=== PATIENT | female | born 1985 | race Caucasian/White ===

== ENCOUNTER → 2021-02-27 13:17 | Outpatient (CLI) | payer OTHER, SELFPAY ==
--- NOTE | 2021-02-27 13:21 | DI.RAD.S_ITS ---
PROCEDURE: XR KNEE LT 3V INDICATIONS: left knee pain TECHNIQUE: 3 views of the knee were acquired. COMPARISON: None. FINDINGS: Bones: No fractures or dislocations. No suspicious bony lesions. There is mild lateral subluxation of the patella at the trochlear groove associated with a relatively shallow trochlear angle. Soft tissues: No joint effusion. No suspicious soft tissue calcifications. IMPRESSION: Mild lateral subluxation of the patella, which may indicate medial ligamentous laxity but there also is note made of a relatively shallow trochlear groove which does predispose to lateral subluxation. Dictated by: Robert Flores M.D. on 02/27/2021 at 14:47 Approved by: Robert Flores M.D. on 02/27/2021 at 14:49
== END ==
PROVIDERS: Family Provider Obstetrics & Gynecology; PCP Family Medicine; Referring Provider Family Medicine; Visit Provider Family Medicine
DX: M25.562 Pain in left knee (principal); S83.012A Lateral subluxation of left patella, initial encounter; X58.XXXA Exposure to other specified factors, initial encounter
CPT/HCPCS: 73562

== ENCOUNTER → 2021-03-16 12:01 | Outpatient (CLI) | payer OTHER, SELFPAY ==
--- NOTE | 2021-03-16 12:03 | DI.US.S_ITS ---
PROCEDURE: US ABDOMEN COMPLETE INDICATIONS: ABDOMINAL PAIN TECHNIQUE: Real-time scanning was performed of the abdominal and retroperitoneal organs, with image documentation. COMPARISON: None. FINDINGS: Liver: Liver is normal in size and homogeneous in echotexture. Gallbladder: Normally distended gallbladder. No gallbladder wall thickening or pericholecystic fluid. No gallstones or sludge. Biliary ducts: Normal caliber. Pancreas: Visualized proximal portions of the pancreas are unremarkable. Spleen: Spleen is normal in size and homogeneous in echotexture. Kidneys: Normal size and appearance of both kidneys. Aorta: Visualized aorta is normal in caliber at less than 3 cm. Iliacs: Proximal common iliac arteries are normal in caliber at less than 2.5 cm. IVC: Intrahepatic inferior vena cava is patent. Miscellaneous: No free abdominal fluid. IMPRESSION: Normal study. Dictated by: Buck Keenan M.D. on 03/16/2021 at 13:46 Approved by: Buck Keenan M.D. on 03/16/2021 at 13:48
== END ==
PROVIDERS: PCP Family Medicine; Referring Provider Family Medicine; Visit Provider Family Medicine
DX: R10.9 Unspecified abdominal pain (principal)
CPT/HCPCS: 76700

== ENCOUNTER 2021-07-09 10:30 | Outpatient (RCR) | payer OTHER, SELFPAY ==
--- NOTE | 2021-03-10 17:42 | PT.OPPOC ---
Physical, Occupational & Speech Therapy At [facility] Current Diagnoses Pain in left knee (03/10/21) Unspecified abnormalities of gait and mobility (03/10/21) Abnormal posture (03/10/21) Weakness (03/10/21) Visit Care Team Role Provider Type Michell Snow MD Attending Provider Physician Primary Care Provider Referring Provider Specialty: [facility] Address: [address] [place] [address], [facility] [place], [address] Email: [email or web address] Plan Of Care PT-OP-T Assessment and Plan Start: 03/09/21 17:45 Freq: Status: Active Protocol: Document 03/10/21 14:26 [facility] (Rec: 03/10/21 15:18 [facility] [id number]) Physical Therapy Assessment Rehab Potential Rehabilitation Potential Good Evaluation Complexity Number of Personal Factors/Comorbidities 1-2 Number of Body Systems Impaired 4 or More Clinical Presentation at Evaluation Evolving Impairments Impairments Activity Tolerance,Balance, Functional Activities, Functional Mobility,Gait,Pain, Posture,ROM,Soft Tissue Mobility,Strength Goals incline Short Term Goal (STG) Pt will be able to go up/down stairs without inc pain. STG Duration 04/10/21 Long-Term Goal (LTG) Pt will be able to go up/down incline without inc knee pain. LTG Duration 05/10/21 balance Vp Of Digital Marketing Goal (LTG) Pt will be able to do SLS B 30 sec w/arms at side w/o lat shift of pelvis or lat lean. LTG Duration 05/10/21 sleep Short Term Goal (STG) Pt will be able to prop her self with sleeping in order to dec pain and sleep through the night without inc pain. STG Duration 04/10/21 activities Short Term Goal (STG) Pt will be able to use elliptical at gym for working out without inc pain. STG Duration 04/10/21 Long-Term Goal (LTG) Pt will be able to run 20 min without inc knee pain. LTG Duration 05/10/21 strength Short Term Goal (STG) pt will be indep w/HEP STG Duration 04/10/21 Long-Term Goal (LTG) Pt will improve LE strength to at least 5/5 and LPM to at least 3/5 in all planes to show imrpoved stability in order to allow for pt to return to typical active lifestyle without inc pain. LTG Duration 05/10/21 LEFS Impairment 54/80 Short Term Goal (STG) Pt will improve score to at least 65/80 to show improved functional ability. STG Duration 04/10/21 Vp Of Digital Marketing Goal (LTG) Pt will improve score to at least 75/80 to show improved functional ability. LTG Duration 05/10/21 Assessment Summary Assessment Pt presents w/L knee pain that started about 5 months ago over the winter with unknown cause, but did have 2 incidences with inc pain ( after hitting knee in car when climbing from back and from doing jump squats w/bad form). Pain initially improved when improved from w/jump squats but inc again even after she finished working out with the certified personal finance counselor. She has also been working from home the past year and has been in a new role since Oct, which requires her to stay at her desk and pt admits to crossing legs when sitting and wonders if that inc pain. She had a Xray which showed mild lat subluxation of patella w/a relatively shallow trochlear groove. She would benefit from skilled PT to work on her gait mechanics, posture, strength, ROM, balance,and stability in order to dec pain . Physical Therapy Plan Frequency and Duration Frequency of Treatment 1-2x/week Duration of Treatment 2 months Plan of Care Start Date 03/10/21 Plan of Care End Date 05/10/21 Therapeutic Interventions Therapeutic Interventions Aquatic Therapy,Balance Training,Gait Training,Home Exercise Program,Joint Mobilizations,Manual Therapy, Neuromuscular Re-education, Patient/Caregiver Education, Self-Care/Home Management,Soft Tissue Mobilization,Taping, Therapeutic Activities, Therapeutic Exercises Modalities Cold Pack/Ice Massage,Electric Stimulation,Hot Packs, Infrared Therapy,Iontophoresis ,Ultrasound Next Visit Focus/Plan Next Note Type Treatment Note Next Visit Plan bike to start, leg press and discuss use of leg press at gym, KT taping for dec lat patellar glide, clamshells, hip abd & hip ext, B LE hip flex isometric, STM to ITB and thigh to improve mobility Plan of Care Dates Plan of Care Start Date 03/10/21 Plan of Care End Date 05/10/21 Electronically Signed by: Michell Nesbitt, PT 03/11/21 0262 Please Sign and Return: I have reviewed this Plan of Care and certify that the skilled therapy services above are required to meet the patient?s needs. Physician Signature Date Printed Name and Credentials Clinical Instructor Signature Printed Name and Credentials
--- NOTE | 2021-03-10 17:42 | PT.OIE ---
Current Diagnoses Pain in left knee (03/10/21) Unspecified abnormalities of gait and mobility (03/10/21) Abnormal posture (03/10/21) Weakness (03/10/21) Past Medical History (Last Updated 02/27/21 @ 13:09 by Michell Snow MD) Abnormal Pap smear of cervix (~2002) Chicken pox (~1989) Genital warts (~2004) Human papilloma virus (~2002) Shoulder dystocia Spontaneous vaginal delivery Past Surgical History (Last Updated 10/01/18 @ 21:43 by Lore Harris) Anesthesia History of elective History of third molar tooth extraction Status post loop electrosurgical excision procedure (LEEP) of cervix (03/11/17) Visit Care Team Role Provider Type Michell Snow MD Attending Provider Physician Primary Care Provider Referring Provider Specialty: [facility] Address: [address] [place] [address], [facility] Email: [email or web address] Physical Therapy Initial Evaluation PT-OP-A Visit Information Start: 03/09/21 17:45 Freq: Status: Active Protocol: Document 03/10/21 14:26 [facility] (Rec: 03/10/21 15:18 [facility] [id number]) Out-Patient Physical Therapy Visit Information Visit Information Visit Type Initial Evaluation Visit Start Time 14:33 Visit Stop Time 15:15 Total Visit Minutes 42 Visit Number 1 Number of SUPERVISOR MAJOR APPLIANCE ASSEMBLY Visits 0 PT-OP-B Current Condition Start: 03/09/21 17:45 Freq: Status: Active Protocol: Document 03/10/21 14:26 [facility] (Rec: 03/10/21 15:18 [facility] [id number]) Current Condition History of Current Condition Onset Date this winter Current Complaints L knee pain History of Current Condition Pt reports remembering climbing out the back of car and slammed knee into car this winter. She was seeing a virtual show dog trainer this winter and was doing jump squats and did bad form and hurt a lot. She improved form then that helped but then stopped and pain was worse and didn't resume. pt resumed going to the gym and it has been killing me. Tried to start light (did treadmill ( fast pace walking and working up running-has built up to 13 min) or elliptical (in the full range setting). It felt good when she was running but not after. Has not been to gym since xray 1.5 weeks ago. Does do stretching and arms also at gym typcially. Works remotely for a [employer] and sits w/1 knee bent and other leg over it and thinks that may be the main cause but pain does inc. She started new role w/company in Oct where seh has to be in office d/t back to back calls. Pt cannot sleep on her side d/t pain. Has been sleeping supine /prone. Prior Treatments and Tests Xray-IMPRESSION: Mild lateral subluxation of the patella, which may indicate medial ligamentous laxity but there also is note made of a relatively shallow trochlear groove which does predispose to lateral subluxation. Treatment Goals Patient/Caregiver Goals Be able to run again (prior to pandemic was training for 1/2 marathon), be able to sleep easily Personal Factors Other Personal Factors That May Effect R side pains, ant hip pain B Therapy/Recovery off/on, piriformis tendinosis R hip 10 years-chronic PT-OP-C Subjective Start: 03/09/21 17:45 Freq: Status: Active Protocol: Document 03/10/21 14:26 [facility] (Rec: 03/10/21 15:18 [facility] [id number]) Patient Questionnaires Lower Extremity Functional Scale LEFS Score 54 OP-PT Pain Assessment Location L knee Pain Location Details ant & post knee Intensity 3 Scale Used worst:6 Description Tightness Description- Other cold, many different feelings Frequency Constant Radiating Location L calf & HS Pain Aggravating Factors Sitting,Stair Climbing,Bending Other Pain Aggravating Factors running, work, sit>stand, kneeling Pain Alleviating Factors Cold Other Pain Alleviating Factors try to prop PT-OP-D Balance Start: 03/09/21 17:45 Freq: Status: Active Protocol: Document 03/10/21 14:26 [facility] (Rec: 03/10/21 15:18 [facility] [id number]) Balance Tests Single Limb Standing Single Limb- Right 29 w/significant UE use and lat shear of hip Single Limb- Left 26 sec w/significant UE use and lat shear of hip PT-OP-F Manual Assessment Start: 03/09/21 17:45 Freq: Status: Active Protocol: Document 03/10/21 14:26 [facility] (Rec: 03/10/21 15:18 [facility] [id number]) Manual Assessments Soft Tissue Assessment Soft Tissue Mobility Assessment tightness HS, ITB, adductors, calf Joint Mobility Assessment Joint Mobility Assessment rearfoot valgus B, IR femurs & tibias B PT-OP-G Mobility & Gait Start: 03/09/21 17:45 Freq: Status: Active Protocol: Document 03/10/21 14:26 [facility] (Rec: 03/10/21 15:18 [facility] [id number]) OP Gait Assessment Comments Gait Comments Toes turned in, lat shear of hips w/WB, dec push off, inc LUE arm swing PT-OP-J Posture/Palpation/Skin Start: 03/09/21 17:45 Freq: Status: Active Protocol: Document 03/10/21 14:26 [facility] (Rec: 03/10/21 15:18 [facility] [id number]) Posture Evaluation [facility] Postural Classification System Lumbar Protective Mechanism Left AP 0 Lumbar Protective Mechanism Right AP 0 Lumbar Protective Mechanism Left PA 0 Lumbar Protective Mechanism Right PA 0 PT-OP-K Range of Motion Start: 03/09/21 17:45 Freq: Status: Active Protocol: Document 03/10/21 14:26 [facility] (Rec: 03/10/21 15:18 [facility] [id number]) Knee Goniometric Range of Motion Knee Right Flexion Active (degrees) 130 Extension Active (degrees) 0 Left Flexion Active (degrees) 119 Extension Active (degrees) 5 Comments pain at end ranges PT-OP-L Special Tests Start: 03/09/21 17:45 Freq: Status: Active Protocol: Document 03/10/21 14:26 [facility] (Rec: 03/10/21 15:18 [facility] [id number]) Special Tests Knee Special Tests Straight Leg Raise Test Results 78 L, 88 R Steve's Test Test Results positve L Abbe Test Results mild tightness in quads L Varus- 25 Degrees Test Results neg Vaughan's Compression Test Results positve L Thessaly Test 5 Degrees Test Results pain Valgus- 25 Degrees Test Results neg Posterior Draw Test Results neg Cochran Chondromalacia Test Results neg -not a lot of pain noted w /knee ext resisted Corrie Test Test Results neg Jie's Test Results neg PT-OP-M Strength Start: 03/09/21 17:45 Freq: Status: Active Protocol: Document 03/10/21 14:26 [facility] (Rec: 03/10/21 15:18 [facility] [id number]) Hip Strength Hip Manual Muscle Testing Right Flexion (L2) 3+ Fair+ Extension (S1) 4 Good Abduction 3+ Fair+ Adduction 4+ Good+ External Rotation 4 Good Internal Rotation 4 Good Left Flexion (L2) 3+ Fair+ Extension (S1) 4 Good Abduction 3+ Fair+ Adduction 3+ Fair+ External Rotation 3 Fair Internal Rotation 4- Good- Comments pain w/rot Knee Strength Knee Manual Muscle Testing Right Flexion (S2) 5 Normal Extension (L3) 5 Normal Left Flexion (S2) 4- Good- Extension (L3) 5 Normal Ankle/Foot Strength Ankle and Foot Manual Muscle Testing Right Dorsiflexion (L4) 5 Normal Plantarflexion (S1) 5 Normal Inversion 5 Normal Eversion (S1) 5 Normal Comments 20 heel raises Left Dorsiflexion (L4) 5 Normal Plantarflexion (S1) 5 Normal Inversion 5 Normal Eversion (S1) 5 Normal PT-OP-Q Treatments Start: 03/09/21 17:45 Freq: Status: Active Protocol: Document 03/10/21 14:26 [facility] (Rec: 03/10/21 15:18 [facility] [id number]) Therapeutic Exercises Supine Exercises HS Supine Exercise Name active stretch Side left Reps/Minutes 2x15 sec PT-OP-T Assessment and Plan Start: 03/09/21 17:45 Freq: Status: Active Protocol: Document 03/10/21 14:26 [facility] (Rec: 03/10/21 15:18 [facility] [id number]) Physical Therapy Assessment Rehab Potential Rehabilitation Potential Good Evaluation Complexity Number of Personal Factors/Comorbidities 1-2 Number of Body Systems Impaired 4 or More Clinical Presentation at Evaluation Evolving Impairments Impairments Activity Tolerance,Balance, Functional Activities, Functional Mobility,Gait,Pain, Posture,ROM,Soft Tissue Mobility,Strength Goals incline Short Term Goal (STG) Pt will be able to go up/down stairs without inc pain. STG Duration 04/10/21 Commission Auditor Goal (LTG) Pt will be able to go up/down incline without inc knee pain. LTG Duration 05/10/21 balance Commission Auditor Goal (LTG) Pt will be able to do SLS B 30 sec w/arms at side w/o lat shift of pelvis or lat lean. LTG Duration 05/10/21 sleep Short Term Goal (STG) Pt will be able to prop her self with sleeping in order to dec pain and sleep through the night without inc pain. STG Duration 04/10/21 activities Short Term Goal (STG) Pt will be able to use elliptical at gym for working out without inc pain. STG Duration 04/10/21 Mcc Goal (LTG) Pt will be able to run 20 min without inc knee pain. LTG Duration 05/10/21 strength Short Term Goal (STG) pt will be indep w/HEP STG Duration 04/10/21 Mcc Goal (LTG) Pt will improve LE strength to at least 5/5 and LPM to at least 3/5 in all planes to show imrpoved stability in order to allow for pt to return to typical active lifestyle without inc pain. LTG Duration 05/10/21 LEFS Impairment 54/80 Short Term Goal (STG) Pt will improve score to at least 65/80 to show improved functional ability. STG Duration 04/10/21 Mcc Goal (LTG) Pt will improve score to at least 75/80 to show improved functional ability. LTG Duration 05/10/21 Assessment Summary Assessment Pt presents w/L knee pain that started about 5 months ago over the winter with unknown cause, but did have 2 incidences with inc pain ( after hitting knee in car when climbing from back and from doing jump squats w/bad form). Pain initially improved when improved from w/jump squats but inc again even after she finished working out with the show dog trainer. She has also been working from home the past year and has been in a new role since Oct, which requires her to stay at her desk and pt admits to crossing legs when sitting and wonders if that inc pain. She had a Xray which showed mild lat subluxation of patella w/a relatively shallow trochlear groove. She would benefit from skilled PT to work on her gait mechanics, posture, strength, ROM, balance,and stability in order to dec pain . Physical Therapy Plan Frequency and Duration Frequency of Treatment 1-2x/week Duration of Treatment 2 months Plan of Care Start Date 03/10/21 Plan of Care End Date 05/10/21 Therapeutic Interventions Therapeutic Interventions Aquatic Therapy,Balance Training,Gait Training,Home Exercise Program,Joint Mobilizations,Manual Therapy, Neuromuscular Re-education, Patient/Caregiver Education, Self-Care/Home Management,Soft Tissue Mobilization,Taping, Therapeutic Activities, Therapeutic Exercises Modalities Cold Pack/Ice Massage,Electric Stimulation,Hot Packs, Infrared Therapy,Iontophoresis ,Ultrasound Next Visit Focus/Plan Next Note Type Treatment Note Next Visit Plan bike to start, leg press and discuss use of leg press at gym, KT taping for dec lat patellar glide, clamshells, hip abd & hip ext, B LE hip flex isometric, STM to ITB and thigh to improve mobility
--- NOTE | 2021-03-18 15:42 | PT.OTN ---
Current Diagnoses Pain in left knee (03/18/21) Unspecified abnormalities of gait and mobility (03/18/21) Abnormal posture (03/18/21) Weakness (03/18/21) Physical Therapy Treatment Note PT-OP-A Visit Information Start: 03/09/21 17:45 Freq: Status: Active Protocol: Document 03/18/21 14:31 [facility] (Rec: 03/18/21 15:42 [facility] [id number]) Out-Patient Physical Therapy Visit Information Visit Information Visit Type Treatment Note Visit Start Time 14:36 Visit Stop Time 15:15 Total Visit Minutes 39 Visit Number 2 Number of BLOOMING MILL SUPERVISOR Visits 0 PT-OP-B Current Condition Start: 03/09/21 17:45 Freq: Status: Active Protocol: Document 03/10/21 14:26 [facility] (Rec: 03/10/21 15:18 [facility] [id number]) Current Condition History of Current Condition Onset Date this winter Current Complaints L knee pain History of Current Condition Pt reports remembering climbing out the back of car and slammed knee into car this winter. She was seeing a virtual personal finance instructor this winter and was doing jump squats and did bad form and hurt a lot. She improved form then that helped but then stopped and pain was worse and didn't resume. pt resumed going to the gym and it has been killing me. Tried to start light (did treadmill ( fast pace walking and working up running-has built up to 13 min) or elliptical (in the full range setting). It felt good when she was running but not after. Has not been to gym since xray 1.5 weeks ago. Does do stretching and arms also at gym typcially. Works remotely for a [employer] and sits w/1 knee bent and other leg over it and thinks that may be the main cause but pain does inc. She started new role w/company in Oct where seh has to be in office d/t back to back calls. Pt cannot sleep on her side d/t pain. Has been sleeping supine /prone. Prior Treatments and Tests Xray-IMPRESSION: Mild lateral subluxation of the patella, which may indicate medial ligamentous laxity but there also is note made of a relatively shallow trochlear groove which does predispose to lateral subluxation. Treatment Goals Patient/Caregiver Goals Be able to run again (prior to pandemic was training for 1/2 decathon), be able to sleep easily Personal Factors Other Personal Factors That May Effect R side pains, ant hip pain B Therapy/Recovery off/on, piriformis tendinosis R hip 10 years-chronic PT-OP-C Subjective Start: 03/09/21 17:45 Freq: Status: Active Protocol: Document 03/18/21 14:31 [facility] (Rec: 03/18/21 15:42 [facility] [id number]) OP-PT Subjective Patient Comments Patient Comments Pt reports right hip started bothering her after IE PT-OP-D Balance Start: 03/09/21 17:45 Freq: Status: Active Protocol: Document 03/10/21 14:26 [facility] (Rec: 03/10/21 15:18 [facility] [id number]) Balance Tests Single Limb Standing Single Limb- Right 29 w/significant UE use and lat shear of hip Single Limb- Left 26 sec w/significant UE use and lat shear of hip PT-OP-F Manual Assessment Start: 03/09/21 17:45 Freq: Status: Active Protocol: Document 03/10/21 14:26 [facility] (Rec: 03/10/21 15:18 [facility] [id number]) Manual Assessments Soft Tissue Assessment Soft Tissue Mobility Assessment tightness HS, ITB, adductors, calf Joint Mobility Assessment Joint Mobility Assessment rearfoot valgus B, IR femurs & tibias B PT-OP-G Mobility & Gait Start: 03/09/21 17:45 Freq: Status: Active Protocol: Document 03/10/21 14:26 [facility] (Rec: 03/10/21 15:18 [facility] [id number]) OP Gait Assessment Comments Gait Comments Toes turned in, lat shear of hips w/WB, dec push off, inc LUE arm swing PT-OP-J Posture/Palpation/Skin Start: 03/09/21 17:45 Freq: Status: Active Protocol: Document 03/10/21 14:26 [facility] (Rec: 03/10/21 15:18 [facility] [id number]) Posture Evaluation [facility] Postural Classification System Lumbar Protective Mechanism Left AP 0 Lumbar Protective Mechanism Right AP 0 Lumbar Protective Mechanism Left PA 0 Lumbar Protective Mechanism Right PA 0 PT-OP-K Range of Motion Start: 03/09/21 17:45 Freq: Status: Active Protocol: Document 03/10/21 14:26 [facility] (Rec: 03/10/21 15:18 [facility] [id number]) Knee Goniometric Range of Motion Knee Right Flexion Active (degrees) 130 Extension Active (degrees) 0 Left Flexion Active (degrees) 119 Extension Active (degrees) 5 Comments pain at end ranges PT-OP-L Special Tests Start: 03/09/21 17:45 Freq: Status: Active Protocol: Document 03/10/21 14:26 [facility] (Rec: 03/10/21 15:18 [facility] [id number]) Special Tests Knee Special Tests Straight Leg Raise Test Results 78 L, 88 R Steve's Test Test Results positve L Abbe Test Results mild tightness in quads L Varus- 25 Degrees Test Results neg Vaughan's Compression Test Results positve L Thessaly Test 5 Degrees Test Results pain Valgus- 25 Degrees Test Results neg Posterior Draw Test Results neg Cochran Chondromalacia Test Results neg -not a lot of pain noted w /knee ext resisted Corrie Test Test Results neg Jie's Test Results neg PT-OP-M Strength Start: 03/09/21 17:45 Freq: Status: Active Protocol: Document 03/10/21 14:26 [facility] (Rec: 03/10/21 15:18 [facility] [id number]) Hip Strength Hip Manual Muscle Testing Right Flexion (L2) 3+ Fair+ Extension (S1) 4 Good Abduction 3+ Fair+ Adduction 4+ Good+ External Rotation 4 Good Internal Rotation 4 Good Left Flexion (L2) 3+ Fair+ Extension (S1) 4 Good Abduction 3+ Fair+ Adduction 3+ Fair+ External Rotation 3 Fair Internal Rotation 4- Good- Comments pain w/rot Knee Strength Knee Manual Muscle Testing Right Flexion (S2) 5 Normal Extension (L3) 5 Normal Left Flexion (S2) 4- Good- Extension (L3) 5 Normal Ankle/Foot Strength Ankle and Foot Manual Muscle Testing Right Dorsiflexion (L4) 5 Normal Plantarflexion (S1) 5 Normal Inversion 5 Normal Eversion (S1) 5 Normal Comments 20 heel raises Left Dorsiflexion (L4) 5 Normal Plantarflexion (S1) 5 Normal Inversion 5 Normal Eversion (S1) 5 Normal PT-OP-Q Treatments Start: 03/09/21 17:45 Freq: Status: Active Protocol: Document 03/18/21 14:31 [facility] (Rec: 03/18/21 15:42 [facility] [id number]) Cardio Equipment Bicycle (Upright) Duration (Minutes) 5 Resistance 6 Seat Position 2 Gym Equipment Shuttle Recovery Bilateral Squats Details attempted ball btwn knees & tband but did not help-best w/ o Resistance 75# Shuttle Recovery Platform Stable Reps/Time 2x12 Therapeutic Exercises Supine Exercises core Supine Exercise Name isometric B flex Side bilateral Reps/Minutes 30 sec HS Supine Exercise Name active stretch Side left Reps/Minutes 2x15 sec Prone Exercises hip ext Prone Exercise Name alt Side bilateral Reps/Minutes 2x10 Sidelying Exercises abd Sidelying Exercise Name hip Side bilateral Reps/Minutes 2x10 vs wall ER Sidelying Exercise Name clamshells Side bilateral Reps/Minutes 2x10 Manual Therapy Treatment Soft Tissue Mobilization quad Body Location L med VMO border Mobilization Type Sustained Pressure Intensity/Depth Moderate Body Position Hooklying Comments w/SAQ Taping knee Treatment Focus med glide of patella Type of Tape Kinesio Tape Comments 1 Y on quad , upside down Y starting at inf tib tub, 1 Y med for med glide facilitation PT-OP-T Assessment and Plan Start: 03/09/21 17:45 Freq: Status: Active Protocol: Document 03/18/21 14:31 [facility] (Rec: 03/18/21 15:42 [facility] [id number]) Physical Therapy Assessment Goals incline Short Term Goal (STG) Pt will be able to go up/down stairs without inc pain. STG Duration 04/10/21 Detention Goal (LTG) Pt will be able to go up/down incline without inc knee pain. LTG Duration 05/10/21 balance Detention Goal (LTG) Pt will be able to do SLS B 30 sec w/arms at side w/o lat shift of pelvis or lat lean. LTG Duration 05/10/21 sleep Short Term Goal (STG) Pt will be able to prop her self with sleeping in order to dec pain and sleep through the night without inc pain. STG Duration 04/10/21 activities Short Term Goal (STG) Pt will be able to use elliptical at gym for working out without inc pain. STG Duration 04/10/21 Detention Goal (LTG) Pt will be able to run 20 min without inc knee pain. LTG Duration 05/10/21 strength Short Term Goal (STG) pt will be indep w/HEP STG Duration 04/10/21 Detention Goal (LTG) Pt will improve LE strength to at least 5/5 and LPM to at least 3/5 in all planes to show imrpoved stability in order to allow for pt to return to typical active lifestyle without inc pain. LTG Duration 05/10/21 LEFS Impairment 54/80 Short Term Goal (STG) Pt will improve score to at least 65/80 to show improved functional ability. STG Duration 04/10/21 Detention Goal (LTG) Pt will improve score to at least 75/80 to show improved functional ability. LTG Duration 05/10/21 Assessment Summary Assessment Pt had difficulty with hip exercises and reported significant mm fatigue w/ exercises espcially abd & ER. She did well with leg press. Attemtped to add Tbad for abd facilation and ball to dec knee pressure but no change made. Pt encouraged to ice and drink a lot of fluids after treatment d/t noting some soreness from STM to VMO despite light pressure. Physical Therapy Plan Frequency and Duration Frequency of Treatment 1-2x/week Duration of Treatment 2 months Plan of Care Start Date 03/10/21 Plan of Care End Date 05/10/21 Next Visit Focus/Plan Next Note Type Treatment Note Next Visit Plan review exercises , STM to ITB and thigh to improve mobility, assess response to KT tape
--- NOTE | 2021-03-27 15:19 | PT.OTN ---
Current Diagnoses Pain in left knee (03/27/21) Unspecified abnormalities of gait and mobility (03/27/21) Abnormal posture (03/27/21) Weakness (03/27/21) Physical Therapy Treatment Note PT-OP-A Visit Information Start: 03/09/21 17:45 Freq: Status: Active Protocol: Document 03/27/21 15:05 [facility] (Rec: 03/27/21 15:19 [facility] [id number]) Out-Patient Physical Therapy Visit Information Visit Information Visit Type Treatment Note Visit Note Pt states her HEP has been helpful. She has had inconsistent pain since last tx. Visit Start Time 13:00 Visit Stop Time 13:40 Total Visit Minutes 40 Visit Number 2 Number of COUNCILPERSON Visits 0 PT-OP-B Current Condition Start: 03/09/21 17:45 Freq: Status: Active Protocol: Document 03/27/21 15:05 [facility] (Rec: 03/27/21 15:19 [facility] [id number]) Current Condition History of Current Condition Onset Date this winter Current Complaints L knee pain History of Current Condition Pt reports remembering climbing out the back of car and slammed knee into car this winter. She was seeing a virtual vocational trainer this winter and was doing jump squats and did bad form and hurt a lot. She improved form then that helped but then stopped and pain was worse and didn't resume. pt resumed going to the gym and it has been killing me. Tried to start light (did treadmill ( fast pace walking and working up running-has built up to 13 min) or elliptical (in the full range setting). It felt good when she was running but not after. Has not been to gym since xray 1.5 weeks ago. Does do stretching and arms also at gym typcially. Works remotely for [employer] and sits w/1 knee bent and other leg over it and thinks that may be the main cause but pain does inc. She started new role w/[employer] in Oct where se has to be in office d/t back to back calls. Pt cannot sleep on her side d/t pain. Has been sleeping supine /prone. Prior Treatments and Tests Xray-IMPRESSION: Mild lateral subluxation of the patella, which may indicate medial ligamentous laxity but there also is note made of a relatively shallow trochlear groove which does predispose to lateral subluxation. Treatment Goals Patient/Caregiver Goals Be able to run again (prior to pandemic was training for 1/2 marathon), be able to sleep easily Prior Functional Status Baseline Function- ADL's Independent Baseline Function- Mobility Independent Personal Factors Other Personal Factors That May Effect R side pains, ant hip pain B Therapy/Recovery off/on, piriformis tendinosis R hip 10 years-chronic PT-OP-C Subjective Start: 03/09/21 17:45 Freq: Status: Active Protocol: Document 03/27/21 15:05 [facility] (Rec: 03/27/21 15:19 [facility] [id number]) OP-PT Subjective Patient Comments Patient Reported Progress Same OP-PT Pain Assessment Pain Assessment Grid Paper Pain Assessment Grid Completed No Location L knee Scale Used Numeric (0 - 10) Description Aching Frequency Intermittent Radiating Location L calf & HS PT-OP-D Balance Start: 03/09/21 17:45 Freq: Status: Active Protocol: Document 03/10/21 14:26 [facility] (Rec: 03/10/21 15:18 [facility] [id number]) Balance Tests Single Limb Standing Single Limb- Right 29 w/significant UE use and lat shear of hip Single Limb- Left 26 sec w/significant UE use and lat shear of hip PT-OP-F Manual Assessment Start: 03/09/21 17:45 Freq: Status: Active Protocol: Document 03/10/21 14:26 [facility] (Rec: 03/10/21 15:18 [facility] [id number]) Manual Assessments Soft Tissue Assessment Soft Tissue Mobility Assessment tightness HS, ITB, adductors, calf Joint Mobility Assessment Joint Mobility Assessment rearfoot valgus B, IR femurs & tibias B PT-OP-G Mobility & Gait Start: 03/09/21 17:45 Freq: Status: Active Protocol: Document 03/10/21 14:26 [facility] (Rec: 03/10/21 15:18 [facility] [id number]) OP Gait Assessment Comments Gait Comments Toes turned in, lat shear of hips w/WB, dec push off, inc LUE arm swing PT-OP-J Posture/Palpation/Skin Start: 03/09/21 17:45 Freq: Status: Active Protocol: Document 03/10/21 14:26 [facility] (Rec: 03/10/21 15:18 [facility] [id number]) Posture Evaluation [facility] Postural Classification System Lumbar Protective Mechanism Left AP 0 Lumbar Protective Mechanism Right AP 0 Lumbar Protective Mechanism Left PA 0 Lumbar Protective Mechanism Right PA 0 PT-OP-K Range of Motion Start: 03/09/21 17:45 Freq: Status: Active Protocol: Document 03/10/21 14:26 [facility] (Rec: 03/10/21 15:18 [facility] [id number]) Knee Goniometric Range of Motion Knee Right Flexion Active (degrees) 130 Extension Active (degrees) 0 Left Flexion Active (degrees) 119 Extension Active (degrees) 5 Comments pain at end ranges PT-OP-L Special Tests Start: 03/09/21 17:45 Freq: Status: Active Protocol: Document 03/10/21 14:26 [facility] (Rec: 03/10/21 15:18 [facility] [id number]) Special Tests Knee Special Tests Straight Leg Raise Test Results 78 L, 88 R Steve's Test Test Results positve L Abbe Test Results mild tightness in quads L Varus- 25 Degrees Test Results neg Vaughan's Compression Test Results positve L Thessaly Test 5 Degrees Test Results pain Valgus- 25 Degrees Test Results neg Posterior Draw Test Results neg Cochran Chondromalacia Test Results neg -not a lot of pain noted w /knee ext resisted Corrie Test Test Results neg Jie's Test Results neg PT-OP-M Strength Start: 03/09/21 17:45 Freq: Status: Active Protocol: Document 03/10/21 14:26 [facility] (Rec: 03/10/21 15:18 [facility] [id number]) Hip Strength Hip Manual Muscle Testing Right Flexion (L2) 3+ Fair+ Extension (S1) 4 Good Abduction 3+ Fair+ Adduction 4+ Good+ External Rotation 4 Good Internal Rotation 4 Good Left Flexion (L2) 3+ Fair+ Extension (S1) 4 Good Abduction 3+ Fair+ Adduction 3+ Fair+ External Rotation 3 Fair Internal Rotation 4- Good- Comments pain w/rot Knee Strength Knee Manual Muscle Testing Right Flexion (S2) 5 Normal Extension (L3) 5 Normal Left Flexion (S2) 4- Good- Extension (L3) 5 Normal Ankle/Foot Strength Ankle and Foot Manual Muscle Testing Right Dorsiflexion (L4) 5 Normal Plantarflexion (S1) 5 Normal Inversion 5 Normal Eversion (S1) 5 Normal Comments 20 heel raises Left Dorsiflexion (L4) 5 Normal Plantarflexion (S1) 5 Normal Inversion 5 Normal Eversion (S1) 5 Normal PT-OP-Q Treatments Start: 03/09/21 17:45 Freq: Status: Active Protocol: Document 03/27/21 15:05 [facility] (Rec: 03/27/21 15:19 [id number] Manual Therapy Treatment Taping knee Treatment Focus med glide of patella Type of Tape Kinesio Tape Comments 1 Y on quad , upside down Y starting at inf tib tub, 1 Y med for med glide facilitation Self-Care/Home Management Treatment Education Patient Education Body Mechanics Other Education pt advised to attend to IR with sit to stand, wearing appropriate footwear to limit knee valgus PT-OP-T Assessment and Plan Start: 03/09/21 17:45 Freq: Status: Active Protocol: Document 03/27/21 15:05 [facility] (Rec: 03/27/21 15:19 [id number] Physical Therapy Assessment Rehab Potential Rehabilitation Potential Good Evaluation Complexity Number of Personal Factors/Comorbidities 1-2 Number of Body Systems Impaired 4 or More Clinical Presentation at Evaluation Evolving Impairments Impairments Activity Tolerance,Balance, Functional Activities, Functional Mobility,Gait,Pain, Posture,ROM,Soft Tissue Mobility,Strength Goals incline Short Term Goal (STG) Pt will be able to go up/down stairs without inc pain. STG Duration 04/10/21 Digital Content Manager Goal (LTG) Pt will be able to go up/down incline without inc knee pain. LTG Duration 05/10/21 balance Group Home Goal (LTG) Pt will be able to do SLS B 30 sec w/arms at side w/o lat shift of pelvis or lat lean. LTG Duration 05/10/21 sleep Short Term Goal (STG) Pt will be able to prop her self with sleeping in order to dec pain and sleep through the night without inc pain. STG Duration 04/10/21 activities Short Term Goal (STG) Pt will be able to use elliptical at gym for working out without inc pain. STG Duration 04/10/21 Group Home Goal (LTG) Pt will be able to run 20 min without inc knee pain. LTG Duration 05/10/21 strength Short Term Goal (STG) pt will be indep w/HEP STG Duration 04/10/21 Group Home Goal (LTG) Pt will improve LE strength to at least 5/5 and LPM to at least 3/5 in all planes to show imrpoved stability in order to allow for pt to return to typical active lifestyle without inc pain. LTG Duration 05/10/21 LEFS Impairment 54/80 Short Term Goal (STG) Pt will improve score to at least 65/80 to show improved functional ability. STG Duration 04/10/21 Group Home Goal (LTG) Pt will improve score to at least 75/80 to show improved functional ability. LTG Duration 05/10/21 Assessment Summary Assessment Pt had difficulty with hip exercises and reported significant mm fatigue w/ exercises espcially abd & ER. She did well with leg press. Pt attempting step down to improve glute recruitment, avoided due to knee pain on R. She is agreeable to increase resistance to 100lb Physical Therapy Plan Frequency and Duration Frequency of Treatment 1-2x/week Duration of Treatment 2 months Plan of Care Start Date 03/10/21 Plan of Care End Date 05/10/21 Therapeutic Interventions Therapeutic Interventions Aquatic Therapy,Balance Training,Gait Training,Home Exercise Program,Joint Mobilizations,Manual Therapy, Neuromuscular Re-education, Patient/Caregiver Education, Self-Care/Home Management,Soft Tissue Mobilization,Taping, Therapeutic Activities, Therapeutic Exercises Modalities Cold Pack/Ice Massage,Electric Stimulation,Hot Packs, Infrared Therapy,Iontophoresis ,Ultrasound Next Visit Focus/Plan Next Note Type Treatment Note Next Visit Plan review exercises , continue KT tape per pt request, consider glute strengthening to improve knee control
--- NOTE | 2021-04-01 11:10 | PT.OTN ---
Current Diagnoses Pain in left knee (04/01/21) Unspecified abnormalities of gait and mobility (04/01/21) Abnormal posture (04/01/21) Weakness (04/01/21) Physical Therapy Treatment Note PT-OP-A Visit Information Start: 03/09/21 17:45 Freq: Status: Active Protocol: Document 04/01/21 11:02 OF (Rec: 04/01/21 11:10 OF [email or web address]) Out-Patient Physical Therapy Visit Information Visit Information Visit Type Treatment Note Visit Note Pt states her HEP has been helpful. She has had inconsistent pain since last tx, worse the 3 days following Visit Start Time 10:25 Visit Stop Time 11:02 Total Visit Minutes 37 Visit Number 3 Number of MORTGAGE UNDERWRITER Visits 0 PT-OP-B Current Condition Start: 03/09/21 17:45 Freq: Status: Active Protocol: Document 03/27/21 15:05 OF (Rec: 03/27/21 15:19 OF [email or web address]) Current Condition History of Current Condition Onset Date this winter Current Complaints L knee pain History of Current Condition Pt reports remembering climbing out the back of car and slammed knee into car this winter. She was seeing a virtual personal lines insurance agent this winter and was doing jump squats and did bad form and hurt a lot. She improved form then that helped but then stopped and pain was worse and didn't resume. pt resumed going to the gym and it has been killing me. Tried to start light (did treadmill ( fast pace walking and working up running-has built up to 13 min) or elliptical (in the full range setting). It felt good when she was running but not after. Has not been to gym since xray 1.5 weeks ago. Does do stretching and arms also at gym typcially. Works remotely for a [employer] and sits w/1 knee bent and other leg over it and thinks that may be the main cause but pain does inc. She started new role w/[employer] in Oct where se has to be in office d/t back to back calls. Pt cannot sleep on her side d/t pain. Has been sleeping supine /prone. Prior Treatments and Tests Xray-IMPRESSION: Mild lateral subluxation of the patella, which may indicate medial ligamentous laxity but there also is note made of a relatively shallow trochlear groove which does predispose to lateral subluxation. Treatment Goals Patient/Caregiver Goals Be able to run again (prior to pandemic was training for 1/2 marathon), be able to sleep easily Prior Functional Status Baseline Function- ADL's Independent Baseline Function- Mobility Independent Personal Factors Other Personal Factors That May Effect R side pains, ant hip pain B Therapy/Recovery off/on, piriformis tendinosis R hip 10 years-chronic PT-OP-C Subjective Start: 03/09/21 17:45 Freq: Status: Active Protocol: Document 04/01/21 11:02 OF (Rec: 04/01/21 11:10 OF [email or web address]) OP-PT Subjective Patient Comments Patient Comments Pt states she has been performing HEP, using gym with minimal discomfort. Patient Reported Progress Same OP-PT Pain Assessment Pain Assessment Grid Paper Pain Assessment Grid Completed Yes Location L knee Pain Location Details 3/10 Scale Used Numeric (0 - 10) Description Aching,Burning Frequency Frequent Pain Aggravating Factors ADL's,Activity,Exercise, Sitting,Stair Climbing Pain Alleviating Factors Inactivity,Lying Supine, Elevation PT-OP-D Balance Start: 03/09/21 17:45 Freq: Status: Active Protocol: Document 03/10/21 14:26 [facility] (Rec: 03/10/21 15:18 [facility] [id number]) Balance Tests Single Limb Standing Single Limb- Right 29 w/significant UE use and lat shear of hip Single Limb- Left 26 sec w/significant UE use and lat shear of hip PT-OP-F Manual Assessment Start: 03/09/21 17:45 Freq: Status: Active Protocol: Document 03/10/21 14:26 [facility] (Rec: 03/10/21 15:18 [facility] [id number]) Manual Assessments Soft Tissue Assessment Soft Tissue Mobility Assessment tightness HS, ITB, adductors, calf Joint Mobility Assessment Joint Mobility Assessment rearfoot valgus B, IR femurs & tibias B PT-OP-G Mobility & Gait Start: 03/09/21 17:45 Freq: Status: Active Protocol: Document 03/10/21 14:26 [facility] (Rec: 03/10/21 15:18 [facility] [id number]) OP Gait Assessment Comments Gait Comments Toes turned in, lat shear of hips w/WB, dec push off, inc LUE arm swing PT-OP-J Posture/Palpation/Skin Start: 03/09/21 17:45 Freq: Status: Active Protocol: Document 03/10/21 14:26 [facility] (Rec: 03/10/21 15:18 [facility] [id number]) Posture Evaluation [facility] Postural Classification System Lumbar Protective Mechanism Left AP 0 Lumbar Protective Mechanism Right AP 0 Lumbar Protective Mechanism Left PA 0 Lumbar Protective Mechanism Right PA 0 PT-OP-K Range of Motion Start: 03/09/21 17:45 Freq: Status: Active Protocol: Document 03/10/21 14:26 [facility] (Rec: 03/10/21 15:18 [facility] [id number]) Knee Goniometric Range of Motion Knee Right Flexion Active (degrees) 130 Extension Active (degrees) 0 Left Flexion Active (degrees) 119 Extension Active (degrees) 5 Comments pain at end ranges PT-OP-L Special Tests Start: 03/09/21 17:45 Freq: Status: Active Protocol: Document 03/10/21 14:26 [facility] (Rec: 03/10/21 15:18 [facility] [id number]) Special Tests Knee Special Tests Straight Leg Raise Test Results 78 L, 88 R Steve's Test Test Results positve L Abbe Test Results mild tightness in quads L Varus- 25 Degrees Test Results neg Vaughan's Compression Test Results positve L Thessaly Test 5 Degrees Test Results pain Valgus- 25 Degrees Test Results neg Posterior Draw Test Results neg Cochran Chondromalacia Test Results neg -not a lot of pain noted w /knee ext resisted Corrie Test Test Results neg Jie's Test Results neg PT-OP-M Strength Start: 03/09/21 17:45 Freq: Status: Active Protocol: Document 03/10/21 14:26 [facility] (Rec: 03/10/21 15:18 [facility] [id number]) Hip Strength Hip Manual Muscle Testing Right Flexion (L2) 3+ Fair+ Extension (S1) 4 Good Abduction 3+ Fair+ Adduction 4+ Good+ External Rotation 4 Good Internal Rotation 4 Good Left Flexion (L2) 3+ Fair+ Extension (S1) 4 Good Abduction 3+ Fair+ Adduction 3+ Fair+ External Rotation 3 Fair Internal Rotation 4- Good- Comments pain w/rot Knee Strength Knee Manual Muscle Testing Right Flexion (S2) 5 Normal Extension (L3) 5 Normal Left Flexion (S2) 4- Good- Extension (L3) 5 Normal Ankle/Foot Strength Ankle and Foot Manual Muscle Testing Right Dorsiflexion (L4) 5 Normal Plantarflexion (S1) 5 Normal Inversion 5 Normal Eversion (S1) 5 Normal Comments 20 heel raises Left Dorsiflexion (L4) 5 Normal Plantarflexion (S1) 5 Normal Inversion 5 Normal Eversion (S1) 5 Normal PT-OP-Q Treatments Start: 03/09/21 17:45 Freq: Status: Active Protocol: Document 04/01/21 11:02 OF (Rec: 04/01/21 11:10 OF [email or web address]) Cardio Equipment Bicycle (Upright) Duration (Minutes) 5 Resistance 6 Seat Position 3 Gym Equipment Shuttle Recovery Bilateral Squats Details cues for ext rot at hips with extension Resistance 75# Shuttle Recovery Platform Stable Reps/Time 3x15 Therapeutic Exercises Supine Exercises core Supine Exercise Name isometric B flex Side bilateral Reps/Minutes 30 sec HS Supine Exercise Name active stretch Side left Reps/Minutes 2x15 sec Prone Exercises hip ext Prone Exercise Name alt Side bilateral Reps/Minutes 2x10 Sidelying Exercises abd Sidelying Exercise Name hip Side bilateral Reps/Minutes 2x10 sidelying ER Sidelying Exercise Name clamshells Side bilateral Reps/Minutes 2x10 Standing Exercises 1 Standing Exercise Name VoodooVox level 2 band Side bilateral Reps/Minutes 4x10ft Comments cues for proper eccentric control, demo for maintaining hip position Self-Care/Home Management Treatment Education Patient Education Home Exercise Program,Joint Protection PT-OP-T Assessment and Plan Start: 03/09/21 17:45 Freq: Status: Active Protocol: Document 04/01/21 11:02 OF (Rec: 04/01/21 11:10 OF [email or web address]) Physical Therapy Assessment Rehab Potential Rehabilitation Potential Good Evaluation Complexity Number of Personal Factors/Comorbidities 0 Number of Body Systems Impaired 1-2 Clinical Presentation at Evaluation Stable Impairments Impairments Activity Tolerance,Functional Mobility,Gait,Pain,Strength Progress Towards Goals Progress Towards Goals Progressing Toward Goals Assessment Summary Assessment Pt has improved endurance with demo of HEP, improved knee control with sit ot stands, agreeable to progressing HEP and maintaining HEp with pain <4/10. She is planning to use treadmill with gym, bike is broken at her gym. Physical Therapy Plan Frequency and Duration Frequency of Treatment 2x/Week Duration of Treatment 2 months Plan of Care Start Date 03/10/21 Plan of Care End Date 05/10/21 Next Visit Focus/Plan Next Note Type Treatment Note Next Visit Plan assess monster walk results and performance, progress HEP if tolerated. Incline walk?
--- NOTE | 2021-04-03 14:34 | PT.OTN ---
Current Diagnoses Pain in left knee (04/03/21) Unspecified abnormalities of gait and mobility (04/03/21) Abnormal posture (04/03/21) Weakness (04/03/21) Physical Therapy Treatment Note PT-OP-A Visit Information Start: 03/09/21 17:45 Freq: Status: Active Protocol: Document 04/03/21 14:27 OF (Rec: 04/03/21 14:33 OF [email or web address]) Out-Patient Physical Therapy Visit Information Visit Information Visit Type Treatment Note Visit Note Pt states her HEP has been helpful. She has had repeated pain after last tx, initially reports lateral knee, then medial, then posterior Visit Start Time 13:45 Visit Stop Time 14:25 Total Visit Minutes 40 Visit Number 3 PT-OP-B Current Condition Start: 03/09/21 17:45 Freq: Status: Active Protocol: Document 03/27/21 15:05 OF (Rec: 03/27/21 15:19 OF [email or web address]) Current Condition History of Current Condition Onset Date this winter Current Complaints L knee pain History of Current Condition Pt reports remembering climbing out the back of car and slammed knee into car this winter. 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 She improved form then that helped but then stopped and pain was worse and didn't resume. pt resumed going to the gym and it has been killing me. Tried to start light (did treadmill ( fast pace walking and working up running-has built up to 13 min) or elliptical (in the full range setting). It felt good when she was running but not after. Has not been to gym since xray 1.5 weeks ago. Does do stretching and arms also at gym typcially. Works remotely for a [employer] and sits w/1 knee bent and other leg over it and thinks that may be the main cause but pain does inc. She started new role w/[employer] in Oct where se has to be in office d/t back to back calls. Pt cannot sleep on her side d/t pain. Has been sleeping supine /prone. Prior Treatments and Tests Xray-IMPRESSION: Mild lateral subluxation of the patella, which may indicate medial ligamentous laxity but there also is note made of a relatively shallow trochlear groove which does predispose to lateral subluxation. Treatment Goals Patient/Caregiver Goals Be able to run again (prior to pandemic was training for 1/2 marathon), be able to sleep easily Prior Functional Status Baseline Function- ADL's Independent Baseline Function- Mobility Independent Personal Factors Other Personal Factors That May Effect R side pains, ant hip pain B Therapy/Recovery off/on, piriformis tendinosis R hip 10 years-chronic PT-OP-C Subjective Start: 03/09/21 17:45 Freq: Status: Active Protocol: Document 04/03/21 14:27 OF (Rec: 04/03/21 14:33 OF [email or web address]) OP-PT Subjective Patient Comments Patient Comments I was sore after last visit, not sure what caused it. Patient Reported Progress Same OP-PT Pain Assessment Pain Assessment Grid Paper Pain Assessment Grid Completed Yes: 01/07 L lateral knee PT-OP-D Balance Start: 03/09/21 17:45 Freq: Status: Active Protocol: Document 03/10/21 14:26 [facility] (Rec: 03/10/21 15:18 [facility] [id number]) Balance Tests Single Limb Standing Single Limb- Right 29 w/significant UE use and lat shear of hip Single Limb- Left 26 sec w/significant UE use and lat shear of hip PT-OP-F Manual Assessment Start: 03/09/21 17:45 Freq: Status: Active Protocol: Document 03/10/21 14:26 [facility] (Rec: 03/10/21 15:18 [facility] [id number]) Manual Assessments Soft Tissue Assessment Soft Tissue Mobility Assessment tightness HS, ITB, adductors, calf Joint Mobility Assessment Joint Mobility Assessment rearfoot valgus B, IR femurs & tibias B PT-OP-G Mobility & Gait Start: 03/09/21 17:45 Freq: Status: Active Protocol: Document 03/10/21 14:26 [facility] (Rec: 03/10/21 15:18 [facility] [id number]) OP Gait Assessment Comments Gait Comments Toes turned in, lat shear of hips w/WB, dec push off, inc LUE arm swing PT-OP-J Posture/Palpation/Skin Start: 03/09/21 17:45 Freq: Status: Active Protocol: Document 03/10/21 14:26 [facility] (Rec: 03/10/21 15:18 [facility] [id number]) Posture Evaluation [facility] Postural Classification System Lumbar Protective Mechanism Left AP 0 Lumbar Protective Mechanism Right AP 0 Lumbar Protective Mechanism Left PA 0 Lumbar Protective Mechanism Right PA 0 PT-OP-K Range of Motion Start: 03/09/21 17:45 Freq: Status: Active Protocol: Document 03/10/21 14:26 [facility] (Rec: 03/10/21 15:18 [facility] [id number]) Knee Goniometric Range of Motion Knee Right Flexion Active (degrees) 130 Extension Active (degrees) 0 Left Flexion Active (degrees) 119 Extension Active (degrees) 5 Comments pain at end ranges PT-OP-L Special Tests Start: 03/09/21 17:45 Freq: Status: Active Protocol: Document 03/10/21 14:26 [facility] (Rec: 03/10/21 15:18 [facility] [id number]) Special Tests Knee Special Tests Straight Leg Raise Test Results 78 L, 88 R Steve's Test Test Results positve L Abbe Test Results mild tightness in quads L Varus- 25 Degrees Test Results neg Vaughan's Compression Test Results positve L Thessaly Test 5 Degrees Test Results pain Valgus- 25 Degrees Test Results neg Posterior Draw Test Results neg Cochran Chondromalacia Test Results neg -not a lot of pain noted w /knee ext resisted Corrie Test Test Results neg Jie's Test Results neg PT-OP-M Strength Start: 03/09/21 17:45 Freq: Status: Active Protocol: Document 03/10/21 14:26 [facility] (Rec: 03/10/21 15:18 [facility] [id number]) Hip Strength Hip Manual Muscle Testing Right Flexion (L2) 3+ Fair+ Extension (S1) 4 Good Abduction 3+ Fair+ Adduction 4+ Good+ External Rotation 4 Good Internal Rotation 4 Good Left Flexion (L2) 3+ Fair+ Extension (S1) 4 Good Abduction 3+ Fair+ Adduction 3+ Fair+ External Rotation 3 Fair Internal Rotation 4- Good- Comments pain w/rot Knee Strength Knee Manual Muscle Testing Right Flexion (S2) 5 Normal Extension (L3) 5 Normal Left Flexion (S2) 4- Good- Extension (L3) 5 Normal Ankle/Foot Strength Ankle and Foot Manual Muscle Testing Right Dorsiflexion (L4) 5 Normal Plantarflexion (S1) 5 Normal Inversion 5 Normal Eversion (S1) 5 Normal Comments 20 heel raises Left Dorsiflexion (L4) 5 Normal Plantarflexion (S1) 5 Normal Inversion 5 Normal Eversion (S1) 5 Normal PT-OP-Q Treatments Start: 03/09/21 17:45 Freq: Status: Active Protocol: Document 04/03/21 14:27 OF (Rec: 04/03/21 14:33 OF [email or web address]) Cardio Equipment Recumbent Bicycle Duration (Minutes) 5 Resistance 5 Seat Position 3 Therapeutic Exercises Supine Exercises core Supine Exercise Name isometric B flex Reps/Minutes 30 sec HS Supine Exercise Name active stretch Side left Reps/Minutes 2x15 sec Prone Exercises hip ext Prone Exercise Name alt Side bilateral Reps/Minutes 2x10 Sidelying Exercises abd Sidelying Exercise Name hip Side bilateral Reps/Minutes 2x10 sidelying ER Sidelying Exercise Name clamshells Side bilateral Reps/Minutes 2x10 Other Exercises 1 Other Exercise Name monsterwalks with level 2 band Side bilateral Reps/Minutes 3x10ft Comments cues for ext rot and hip extensor use Manual Therapy Treatment Soft Tissue Mobilization quad Comments grade 3 a/p mobs for fibular head, tender to IT band over distal femur today Self-Care/Home Management Treatment Education Patient Education Body Mechanics,Home Exercise Program,Joint Protection Other Education pt educated upon using proper footwear, finding arch support to assist with avoiding internal rotation and medial collapse PT-OP-T Assessment and Plan Start: 03/09/21 17:45 Freq: Status: Active Protocol: Document 04/03/21 14:27 OF (Rec: 04/03/21 14:33 OF [email or web address]) Physical Therapy Assessment Rehab Potential Rehabilitation Potential Good Evaluation Complexity Number of Personal Factors/Comorbidities 0 Number of Body Systems Impaired 1-2 Clinical Presentation at Evaluation Stable Impairments Impairments Pain,Strength Progress Towards Goals Progress Towards Goals Slow Progress due to Activity Tolerance Assessment Summary Assessment Pt declines progressing sidlying and sup exercises. She has good awareness of monsterwalks and states she has been performing HEP as instructed. Physical Therapy Plan Frequency and Duration Frequency of Treatment 2x/Week Duration of Treatment 2 months Plan of Care Start Date 03/10/21 Plan of Care End Date 05/10/21 Therapeutic Interventions Therapeutic Interventions Aquatic Therapy,Balance Training,Gait Training,Home Exercise Program,Joint Mobilizations,Manual Therapy, Neuromuscular Re-education, Patient/Caregiver Education, Self-Care/Home Management,Soft Tissue Mobilization,Taping, Therapeutic Activities, Therapeutic Exercises Modalities Cold Pack/Ice Massage,Electric Stimulation,Hot Packs, Infrared Therapy,Iontophoresis ,Ultrasound Next Visit Focus/Plan Next Note Type Treatment Note Next Visit Plan progress HEP if tolerated. Increase monster walks or alternative glute strengthening
--- NOTE | 2021-04-06 15:20 | PT.OTN ---
Current Diagnoses Pain in left knee (04/06/21) Unspecified abnormalities of gait and mobility (04/06/21) Abnormal posture (04/06/21) Weakness (04/06/21) Physical Therapy Treatment Note PT-OP-A Visit Information Start: 03/09/21 17:45 Freq: Status: Active Protocol: Document 04/06/21 15:14 OF (Rec: 04/06/21 15:20 OF [email or web address]) Out-Patient Physical Therapy Visit Information Visit Information Visit Type Treatment Note Visit Note Pt states her HEP has been helpful. She has had repeated pain after last tx, initially reports lateral knee, then medial, then posterior Visit Start Time 14:35 Visit Stop Time 15:14 Total Visit Minutes 39 Visit Number 4 PT-OP-B Current Condition Start: 03/09/21 17:45 Freq: Status: Active Protocol: Document 03/27/21 15:05 OF (Rec: 03/27/21 15:19 OF [email or web address]) Current Condition History of Current Condition Onset Date this winter Current Complaints L knee pain History of Current Condition Pt reports remembering climbing out the back of car and slammed knee into car this winter. 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 She improved form then that helped but then stopped and pain was worse and didn't resume. pt resumed going to the gym and it has been killing me. Tried to start light (did treadmill ( fast pace walking and working up running-has built up to 13 min) or elliptical (in the full range setting). It felt good when she was running but not after. Has not been to gym since xray 1.5 weeks ago. Does do stretching and arms also at gym typcially. Works remotely for a [employer] and sits w/1 knee bent and other leg over it and thinks that may be the main cause but pain does inc. She started new role w/[employer] in Oct where se has to be in office d/t back to back calls. Pt cannot sleep on her side d/t pain. Has been sleeping supine /prone. Prior Treatments and Tests Xray-IMPRESSION: Mild lateral subluxation of the patella, which may indicate medial ligamentous laxity but there also is note made of a relatively shallow trochlear groove which does predispose to lateral subluxation. Treatment Goals Patient/Caregiver Goals Be able to run again (prior to pandemic was training for 1/2 marathon), be able to sleep easily Prior Functional Status Baseline Function- ADL's Independent Baseline Function- Mobility Independent Personal Factors Other Personal Factors That May Effect R side pains, ant hip pain B Therapy/Recovery off/on, piriformis tendinosis R hip 10 years-chronic PT-OP-C Subjective Start: 03/09/21 17:45 Freq: Status: Active Protocol: Document 04/06/21 15:14 OF (Rec: 04/06/21 15:20 OF [email or web address]) OP-PT Subjective Patient Comments Patient Comments pt denies HEP over weekend due to travelling with family Patient Reported Progress Same OP-PT Pain Assessment Pain Assessment Grid Paper Pain Assessment Grid Completed No Location L knee Pain Location Details L knee Intensity 2 Scale Used Numeric (0 - 10) Description Aching Frequency Frequent Pain Aggravating Factors ADL's,Activity,Exercise, Standing Pain Alleviating Factors Rest Home Pain Medication Use Pain Medications Used Yes Home Pain Medication Frequency ibuprofen PT-OP-D Balance Start: 03/09/21 17:45 Freq: Status: Active Protocol: Document 03/10/21 14:26 [facility] (Rec: 03/10/21 15:18 [facility] [id number]) Balance Tests Single Limb Standing Single Limb- Right 29 w/significant UE use and lat shear of hip Single Limb- Left 26 sec w/significant UE use and lat shear of hip PT-OP-F Manual Assessment Start: 03/09/21 17:45 Freq: Status: Active Protocol: Document 03/10/21 14:26 [facility] (Rec: 03/10/21 15:18 [facility] [id number]) Manual Assessments Soft Tissue Assessment Soft Tissue Mobility Assessment tightness HS, ITB, adductors, calf Joint Mobility Assessment Joint Mobility Assessment rearfoot valgus B, IR femurs & tibias B PT-OP-G Mobility & Gait Start: 03/09/21 17:45 Freq: Status: Active Protocol: Document 03/10/21 14:26 [facility] (Rec: 03/10/21 15:18 [facility] [id number]) OP Gait Assessment Comments Gait Comments Toes turned in, lat shear of hips w/WB, dec push off, inc LUE arm swing PT-OP-J Posture/Palpation/Skin Start: 03/09/21 17:45 Freq: Status: Active Protocol: Document 03/10/21 14:26 [facility] (Rec: 03/10/21 15:18 [facility] [id number]) Posture Evaluation [facility] Postural Classification System Lumbar Protective Mechanism Left AP 0 Lumbar Protective Mechanism Right AP 0 Lumbar Protective Mechanism Left PA 0 Lumbar Protective Mechanism Right PA 0 PT-OP-K Range of Motion Start: 03/09/21 17:45 Freq: Status: Active Protocol: Document 03/10/21 14:26 [facility] (Rec: 03/10/21 15:18 [facility] [id number]) Knee Goniometric Range of Motion Knee Right Flexion Active (degrees) 130 Extension Active (degrees) 0 Left Flexion Active (degrees) 119 Extension Active (degrees) 5 Comments pain at end ranges PT-OP-L Special Tests Start: 03/09/21 17:45 Freq: Status: Active Protocol: Document 03/10/21 14:26 [facility] (Rec: 03/10/21 15:18 [facility] [id number]) Special Tests Knee Special Tests Straight Leg Raise Test Results 78 L, 88 R Steve's Test Test Results positve L Abbe Test Results mild tightness in quads L Varus- 25 Degrees Test Results neg Vaughan's Compression Test Results positve L Thessaly Test 5 Degrees Test Results pain Valgus- 25 Degrees Test Results neg Posterior Draw Test Results neg Cochran Chondromalacia Test Results neg -not a lot of pain noted w /knee ext resisted Corrie Test Test Results neg Jie's Test Results neg PT-OP-M Strength Start: 03/09/21 17:45 Freq: Status: Active Protocol: Document 03/10/21 14:26 [facility] (Rec: 03/10/21 15:18 [facility] [id number]) Hip Strength Hip Manual Muscle Testing Right Flexion (L2) 3+ Fair+ Extension (S1) 4 Good Abduction 3+ Fair+ Adduction 4+ Good+ External Rotation 4 Good Internal Rotation 4 Good Left Flexion (L2) 3+ Fair+ Extension (S1) 4 Good Abduction 3+ Fair+ Adduction 3+ Fair+ External Rotation 3 Fair Internal Rotation 4- Good- Comments pain w/rot Knee Strength Knee Manual Muscle Testing Right Flexion (S2) 5 Normal Extension (L3) 5 Normal Left Flexion (S2) 4- Good- Extension (L3) 5 Normal Ankle/Foot Strength Ankle and Foot Manual Muscle Testing Right Dorsiflexion (L4) 5 Normal Plantarflexion (S1) 5 Normal Inversion 5 Normal Eversion (S1) 5 Normal Comments 20 heel raises Left Dorsiflexion (L4) 5 Normal Plantarflexion (S1) 5 Normal Inversion 5 Normal Eversion (S1) 5 Normal PT-OP-Q Treatments Start: 03/09/21 17:45 Freq: Status: Active Protocol: Document 04/06/21 15:14 OF (Rec: 04/06/21 15:20 OF [email or web address]) Cardio Equipment Recumbent Bicycle Duration (Minutes) 5 Resistance 5 Seat Position 2 Gym Equipment Shuttle Recovery Bilateral Squats Details single LE today Resistance 37# Shuttle Recovery Platform Stable Reps/Time 3x15 Therapeutic Exercises Supine Exercises core Supine Exercise Name isometric B flex Reps/Minutes 30 secx2 HS Supine Exercise Name active stretch Side left Reps/Minutes 2x15 sec Prone Exercises hip ext Prone Exercise Name alt Side bilateral Reps/Minutes 2x10 Sidelying Exercises abd Sidelying Exercise Name hip Side bilateral Reps/Minutes 2x10 sidelying ER Sidelying Exercise Name clamshells Side bilateral Reps/Minutes 2x10 Sitting Exercises sit to stand Side bilateral Reps/Minutes 3x10 Standing Exercises 1 Standing Exercise Name [employer] level 2 band Side bilateral Reps/Minutes 4x10ft Comments cues for proper eccentric control, demo for avoiding internal rotation Neuro Re-Education Treatment Movement Re-Education Movement Re-education Activities encouraging ext rotation at hips Self-Care/Home Management Treatment Education Patient Education Body Mechanics,Home Exercise Program PT-OP-T Assessment and Plan Start: 03/09/21 17:45 Freq: Status: Active Protocol: Document 04/06/21 15:14 OF (Rec: 04/06/21 15:20 OF [email or web address]) Physical Therapy Assessment Rehab Potential Rehabilitation Potential Good Evaluation Complexity Number of Personal Factors/Comorbidities 0 Number of Body Systems Impaired 1-2 Impairments Impairments Activity Tolerance,Gait,Pain, Soft Tissue Mobility,Strength Progress Towards Goals Progress Towards Goals Progressing Toward Goals Assessment Summary Assessment Pt has improved activity tolerance, continues to have limited HEP performance. She is agreeable to progressing HEP Physical Therapy Plan Frequency and Duration Frequency of Treatment 2x/Week Duration of Treatment 2 months Plan of Care Start Date 03/10/21 Plan of Care End Date 05/10/21 Next Visit Focus/Plan Next Note Type Treatment Note Next Visit Plan encourage ext rot at hips, progress glute strengthening, encourage increased activity
--- NOTE | 2021-04-10 16:14 | PT.OTN ---
Current Diagnoses Pain in left knee (04/10/21) Unspecified abnormalities of gait and mobility (04/10/21) Abnormal posture (04/10/21) Weakness (04/10/21) Physical Therapy Treatment Note PT-OP-A Visit Information Start: 03/09/21 17:45 Freq: Status: Active Protocol: Document 04/10/21 14:30 OF (Rec: 04/10/21 16:14 OF [email or web address]) Out-Patient Physical Therapy Visit Information Visit Information Visit Type Treatment Note Visit Note Pt states her HEP has been helpful. She has had repeated pain after last tx, initially reports lateral knee, then medial, then posterior Visit Start Time 13:42 Visit Stop Time 14:30 Total Visit Minutes 48 Visit Number 4 PT-OP-B Current Condition Start: 03/09/21 17:45 Freq: Status: Active Protocol: Document 03/27/21 15:05 OF (Rec: 03/27/21 15:19 OF [email or web address]) Current Condition History of Current Condition Onset Date this winter Current Complaints L knee pain History of Current Condition Pt reports remembering climbing out the back of car and slammed knee into car this winter. 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 She improved form then that helped but then stopped and pain was worse and didn't resume. pt resumed going to the gym and it has been killing me. Tried to start light (did treadmill ( fast pace walking and working up running-has built up to 13 min) or elliptical (in the full range setting). It felt good when she was running but not after. Has not been to gym since xray 1.5 weeks ago. Does do stretching and arms also at gym typcially. Works remotely for a [employer] and sits w/1 knee bent and other leg over it and thinks that may be the main cause but pain does inc. She started new role w/[employer] in Oct where se has to be in office d/t back to back calls. Pt cannot sleep on her side d/t pain. Has been sleeping supine /prone. Prior Treatments and Tests Xray-IMPRESSION: Mild lateral subluxation of the patella, which may indicate medial ligamentous laxity but there also is note made of a relatively shallow trochlear groove which does predispose to lateral subluxation. Treatment Goals Patient/Caregiver Goals Be able to run again (prior to pandemic was training for 1/2 marathon), be able to sleep easily Prior Functional Status Baseline Function- ADL's Independent Baseline Function- Mobility Independent Personal Factors Other Personal Factors That May Effect R side pains, ant hip pain B Therapy/Recovery off/on, piriformis tendinosis R hip 10 years-chronic PT-OP-C Subjective Start: 03/09/21 17:45 Freq: Status: Active Protocol: Document 04/10/21 14:30 OF (Rec: 04/10/21 16:14 OF [email or web address]) OP-PT Subjective Patient Comments Patient Comments Pt states HEP continues to be challenging. Patient Reported Progress Same OP-PT Pain Assessment Pain Assessment Grid Paper Pain Assessment Grid Completed No Location L knee Pain Location Details L knee Intensity 2 Scale Used Numeric (0 - 10) Description Aching Frequency Frequent Pain Aggravating Factors ADL's,Activity,Exercise, Standing Other Pain Aggravating Factors sitting on foot, end range knee flexion Pain Alleviating Factors Rest Comments Pain Comments pt educated upon foot rest for desk at home due to working from home, avoiding sitting on foot with end range flexion to reduce compression between patella and femur. PT-OP-D Balance Start: 03/09/21 17:45 Freq: Status: Active Protocol: Document 03/10/21 14:26 [facility] (Rec: 03/10/21 15:18 [facility] [id number]) Balance Tests Single Limb Standing Single Limb- Right 29 w/significant UE use and lat shear of hip Single Limb- Left 26 sec w/significant UE use and lat shear of hip PT-OP-F Manual Assessment Start: 03/09/21 17:45 Freq: Status: Active Protocol: Document 03/10/21 14:26 [facility] (Rec: 03/10/21 15:18 [facility] [id number]) Manual Assessments Soft Tissue Assessment Soft Tissue Mobility Assessment tightness HS, ITB, adductors, calf Joint Mobility Assessment Joint Mobility Assessment rearfoot valgus B, IR femurs & tibias B PT-OP-G Mobility & Gait Start: 03/09/21 17:45 Freq: Status: Active Protocol: Document 03/10/21 14:26 [facility] (Rec: 03/10/21 15:18 [facility] [id number]) OP Gait Assessment Comments Gait Comments Toes turned in, lat shear of hips w/WB, dec push off, inc LUE arm swing PT-OP-J Posture/Palpation/Skin Start: 03/09/21 17:45 Freq: Status: Active Protocol: Document 03/10/21 14:26 [facility] (Rec: 03/10/21 15:18 [facility] [id number]) Posture Evaluation [facility] Postural Classification System Lumbar Protective Mechanism Left AP 0 Lumbar Protective Mechanism Right AP 0 Lumbar Protective Mechanism Left PA 0 Lumbar Protective Mechanism Right PA 0 PT-OP-K Range of Motion Start: 03/09/21 17:45 Freq: Status: Active Protocol: Document 03/10/21 14:26 [facility] (Rec: 03/10/21 15:18 [facility] [id number]) Knee Goniometric Range of Motion Knee Right Flexion Active (degrees) 130 Extension Active (degrees) 0 Left Flexion Active (degrees) 119 Extension Active (degrees) 5 Comments pain at end ranges PT-OP-L Special Tests Start: 03/09/21 17:45 Freq: Status: Active Protocol: Document 03/10/21 14:26 [facility] (Rec: 03/10/21 15:18 [facility] [id number]) Special Tests Knee Special Tests Straight Leg Raise Test Results 78 L, 88 R Steve's Test Test Results positve L Abbe Test Results mild tightness in quads L Varus- 25 Degrees Test Results neg Vaughan's Compression Test Results positve L Thessaly Test 5 Degrees Test Results pain Valgus- 25 Degrees Test Results neg Posterior Draw Test Results neg Cochran Chondromalacia Test Results neg -not a lot of pain noted w /knee ext resisted Corrie Test Test Results neg Jie's Test Results neg PT-OP-M Strength Start: 03/09/21 17:45 Freq: Status: Active Protocol: Document 03/10/21 14:26 [facility] (Rec: 03/10/21 15:18 [facility] [id number]) Hip Strength Hip Manual Muscle Testing Right Flexion (L2) 3+ Fair+ Extension (S1) 4 Good Abduction 3+ Fair+ Adduction 4+ Good+ External Rotation 4 Good Internal Rotation 4 Good Left Flexion (L2) 3+ Fair+ Extension (S1) 4 Good Abduction 3+ Fair+ Adduction 3+ Fair+ External Rotation 3 Fair Internal Rotation 4- Good- Comments pain w/rot Knee Strength Knee Manual Muscle Testing Right Flexion (S2) 5 Normal Extension (L3) 5 Normal Left Flexion (S2) 4- Good- Extension (L3) 5 Normal Ankle/Foot Strength Ankle and Foot Manual Muscle Testing Right Dorsiflexion (L4) 5 Normal Plantarflexion (S1) 5 Normal Inversion 5 Normal Eversion (S1) 5 Normal Comments 20 heel raises Left Dorsiflexion (L4) 5 Normal Plantarflexion (S1) 5 Normal Inversion 5 Normal Eversion (S1) 5 Normal PT-OP-Q Treatments Start: 03/09/21 17:45 Freq: Status: Active Protocol: Document 04/10/21 14:30 OF (Rec: 04/10/21 16:14 OF [email or web address]) Cardio Equipment Bicycle (Upright) Duration (Minutes) 5 Resistance 6 Seat Position 3 Gym Equipment Shuttle Recovery Bilateral Squats Details single L LE today Dual 50 Resistance 37#, 50 Shuttle Recovery Platform Stable Reps/Time 3x15 Therapeutic Exercises Supine Exercises core Supine Exercise Name isometric B flex Reps/Minutes 30 secx2 HS Supine Exercise Name active stretch Side left Reps/Minutes 2x15 sec Comments cues for slow steady tension Prone Exercises hip ext Prone Exercise Name alt Side bilateral Reps/Minutes 2x10 Sidelying Exercises abd Sidelying Exercise Name hip Side bilateral Reps/Minutes 2x10 sidelying ER Sidelying Exercise Name clamshells Side bilateral Reps/Minutes 2x10 Sitting Exercises sit to stand Side bilateral Reps/Minutes 2x10 Comments cues for slowing descent Standing Exercises 1 Standing Exercise Name [email or web address] level 2 band Side bilateral Reps/Minutes 4x10ft Comments cues for proper step length, demo for avoiding internal rotation Self-Care/Home Management Treatment Education Patient Education Body Mechanics,Home Exercise Program Other Education Pt educated upon postural changes for work, reducing compressive forces while seated PT-OP-T Assessment and Plan Start: 03/09/21 17:45 Freq: Status: Active Protocol: Document 04/10/21 14:30 OF (Rec: 04/10/21 16:14 OF [email or web address]) Physical Therapy Assessment Rehab Potential Rehabilitation Potential Excellent Evaluation Complexity Number of Personal Factors/Comorbidities 0 Number of Body Systems Impaired 1-2 Clinical Presentation at Evaluation Evolving Impairments Impairments Functional Activities, Functional Mobility,Pain, Strength Assessment Summary Assessment Pt states she usually sits on her feet at work, uses end range knee flexion for positioning. She has been educated upon reducing pain with avoiding compressive forces, altering work space with foot rest, proper height chair, and positional changes. She continues to have difficulty with LE therex Physical Therapy Plan Next Visit Focus/Plan Next Note Type Treatment Note Next Visit Plan re assess postural advice, work area changes, need for avoiding end range flexion while seated
--- NOTE | 2021-04-14 13:48 | PT.OTN ---
Current Diagnoses Pain in left knee (04/14/21) Unspecified abnormalities of gait and mobility (04/14/21) Abnormal posture (04/14/21) Weakness (04/14/21) Physical Therapy Treatment Note PT-OP-A Visit Information Start: 03/09/21 17:45 Freq: Status: Active Protocol: Document 04/14/21 12:59 [facility] (Rec: 04/14/21 13:48 [facility] [id number]) Out-Patient Physical Therapy Visit Information Visit Information Visit Type Treatment Note Visit Start Time 13:00 Visit Stop Time 13:45 Total Visit Minutes 45 Visit Number 6 Number of SUPERVISOR IN CIRCUIT TESTING Visits 0 PT-OP-B Current Condition Start: 03/09/21 17:45 Freq: Status: Active Protocol: Document 03/27/21 15:05 OF (Rec: 03/27/21 15:19 OF [id number]) Current Condition History of Current Condition Onset Date this winter Current Complaints L knee pain History of Current Condition Pt reports remembering climbing out the back of car and slammed knee into car this winter. She was seeing a virtual physical trainer this winter and was doing jump squats and did bad form and hurt a lot. She improved form then that helped but then stopped and pain was worse and didn't resume. pt resumed going to the gym and it has been killing me. Tried to start light (did treadmill ( fast pace walking and working up running-has built up to 13 min) or elliptical (in the full range setting). It felt good when she was running but not after. Has not been to gym since xray 1.5 weeks ago. Does do stretching and arms also at gym typcially. Works remotely for a [employer] and sits w/1 knee bent and other leg over it and thinks that may be the main cause but pain does inc. She started new role w/company in Oct where seh has to be in office d/t back to back calls. Pt cannot sleep on her side d/t pain. Has been sleeping supine /prone. Prior Treatments and Tests Xray-IMPRESSION: Mild lateral subluxation of the patella, which may indicate medial ligamentous laxity but there also is note made of a relatively shallow trochlear groove which does predispose to lateral subluxation. Treatment Goals Patient/Caregiver Goals Be able to run again (prior to pandemic was training for 1/2 marathon), be able to sleep easily Prior Functional Status Baseline Function- ADL's Independent Baseline Function- Mobility Independent Personal Factors Other Personal Factors That May Effect R side pains, ant hip pain B Therapy/Recovery off/on, piriformis tendinosis R hip 10 years-chronic PT-OP-C Subjective Start: 03/09/21 17:45 Freq: Status: Active Protocol: Document 04/14/21 12:59 [facility] (Rec: 04/14/21 13:48 [facility] [id number]) OP-PT Subjective Patient Comments Patient Comments Pt reprots she was moving tables and chairs and tweaked her knee this weekend at her dgt [employer]. She didn't do HEP but mostly iced this weekend d/t this PT-OP-D Balance Start: 03/09/21 17:45 Freq: Status: Active Protocol: Document 03/10/21 14:26 [facility] (Rec: 03/10/21 15:18 [facility] [id number]) Balance Tests Single Limb Standing Single Limb- Right 29 w/significant UE use and lat shear of hip Single Limb- Left 26 sec w/significant UE use and lat shear of hip PT-OP-F Manual Assessment Start: 03/09/21 17:45 Freq: Status: Active Protocol: Document 03/10/21 14:26 [facility] (Rec: 03/10/21 15:18 [facility] [id number]) Manual Assessments Soft Tissue Assessment Soft Tissue Mobility Assessment tightness HS, ITB, adductors, calf Joint Mobility Assessment Joint Mobility Assessment rearfoot valgus B, IR femurs & tibias B PT-OP-G Mobility & Gait Start: 03/09/21 17:45 Freq: Status: Active Protocol: Document 03/10/21 14:26 [facility] (Rec: 03/10/21 15:18 [facility] [id number]) OP Gait Assessment Comments Gait Comments Toes turned in, lat shear of hips w/WB, dec push off, inc LUE arm swing PT-OP-J Posture/Palpation/Skin Start: 03/09/21 17:45 Freq: Status: Active Protocol: Document 03/10/21 14:26 [facility] (Rec: 03/10/21 15:18 [facility] [id number]) Posture Evaluation Yris Postural Classification System Lumbar Protective Mechanism Left AP 0 Lumbar Protective Mechanism Right AP 0 Lumbar Protective Mechanism Left PA 0 Lumbar Protective Mechanism Right PA 0 PT-OP-K Range of Motion Start: 03/09/21 17:45 Freq: Status: Active Protocol: Document 03/10/21 14:26 [facility] (Rec: 03/10/21 15:18 [facility] [id number]) Knee Goniometric Range of Motion Knee Right Flexion Active (degrees) 130 Extension Active (degrees) 0 Left Flexion Active (degrees) 119 Extension Active (degrees) 5 Comments pain at end ranges PT-OP-L Special Tests Start: 03/09/21 17:45 Freq: Status: Active Protocol: Document 03/10/21 14:26 [facility] (Rec: 03/10/21 15:18 [facility] [id number]) Special Tests Knee Special Tests Straight Leg Raise Test Results 78 L, 88 R Steve's Test Test Results positve L Abbe Test Results mild tightness in quads L Varus- 25 Degrees Test Results neg Vaughan's Compression Test Results positve L Thessaly Test 5 Degrees Test Results pain Valgus- 25 Degrees Test Results neg Posterior Draw Test Results neg Cochran Chondromalacia Test Results neg -not a lot of pain noted w /knee ext resisted Corrie Test Test Results neg Jie's Test Results neg PT-OP-M Strength Start: 03/09/21 17:45 Freq: Status: Active Protocol: Document 03/10/21 14:26 [facility] (Rec: 03/10/21 15:18 [facility] [id number]) Hip Strength Hip Manual Muscle Testing Right Flexion (L2) 3+ Fair+ Extension (S1) 4 Good Abduction 3+ Fair+ Adduction 4+ Good+ External Rotation 4 Good Internal Rotation 4 Good Left Flexion (L2) 3+ Fair+ Extension (S1) 4 Good Abduction 3+ Fair+ Adduction 3+ Fair+ External Rotation 3 Fair Internal Rotation 4- Good- Comments pain w/rot Knee Strength Knee Manual Muscle Testing Right Flexion (S2) 5 Normal Extension (L3) 5 Normal Left Flexion (S2) 4- Good- Extension (L3) 5 Normal Ankle/Foot Strength Ankle and Foot Manual Muscle Testing Right Dorsiflexion (L4) 5 Normal Plantarflexion (S1) 5 Normal Inversion 5 Normal Eversion (S1) 5 Normal Comments 20 heel raises Left Dorsiflexion (L4) 5 Normal Plantarflexion (S1) 5 Normal Inversion 5 Normal Eversion (S1) 5 Normal PT-OP-Q Treatments Start: 03/09/21 17:45 Freq: Status: Active Protocol: Document 04/14/21 12:59 [facility] (Rec: 04/14/21 13:48 [facility] [id number]) Cardio Equipment Bicycle (Upright) Duration (Minutes) 5 Resistance 6 Seat Position 3 Therapeutic Exercises Standing Exercises SLS Standing Exercise Name in mirror focus on neutral pelvis & knee Side bilateral Reps/Minutes trials mult hip hike Side bilateral Equipment Used 4 in step and rail Reps/Minutes 15 ea side step Side bilateral Equipment Used L1 tband Reps/Minutes 2x20ft step up Side bilateral Equipment Used 4 in Reps/Minutes 10 in mirror focus on knee position Therapeutic Activity Therapeutic Activity sleep Comments s/l, supine & partial prone sleep positions using pillows and towel fro props Manual Therapy Treatment Soft Tissue Mobilization HS Body Location L Mobilization Type Rolling,Strumming Intensity/Depth Moderate Comments w/active HS stretch Taping knee Treatment Focus med glide of patella Type of Tape Kinesio Tape Comments 1 Y on quad , upside down Y starting at inf tib tub, 1 Y med for med glide facilitation PT-OP-T Assessment and Plan Start: 03/09/21 17:45 Freq: Status: Active Protocol: Document 04/14/21 12:59 [facility] (Rec: 04/14/21 13:48 [facility] [id number]) Physical Therapy Assessment Goals incline Short Term Goal (STG) Pt will be able to go up/down stairs without inc pain. STG Duration 04/10/21 Financial Aid Advisor Goal (LTG) Pt will be able to go up/down incline without inc knee pain. LTG Duration 05/10/21 balance Pen[facility]iary Goal (LTG) Pt will be able to do SLS B 30 sec w/arms at side w/o lat shift of pelvis or lat lean. LTG Duration 05/10/21 sleep Short Term Goal (STG) Pt will be able to prop her self with sleeping in order to dec pain and sleep through the night without inc pain. STG Duration 04/10/21 activities Short Term Goal (STG) Pt will be able to use elliptical at gym for working out without inc pain. STG Duration 04/10/21 [facility]iary Goal (LTG) Pt will be able to run 20 min without inc knee pain. LTG Duration 05/10/21 strength Short Term Goal (STG) pt will be indep w/HEP STG Duration 04/10/21 Financial Aid Advisor Goal (LTG) Pt will improve LE strength to at least 5/5 and LPM to at least 3/5 in all planes to show imrpoved stability in order to allow for pt to return to typical active lifestyle without inc pain. LTG Duration 05/10/21 LEFS Impairment 54/80 Short Term Goal (STG) Pt will improve score to at least 65/80 to show improved functional ability. STG Duration 04/10/21 Financial Aid Advisor Goal (LTG) Pt will improve score to at least 75/80 to show improved functional ability. LTG Duration 05/10/21 Assessment Summary Assessment Pt has significant weakness of glute med and had difficulty with SLS and hip hikes on LLE w/avoiding lat shearing excessively of L pelvis. She felt fatigue in glutes w/ sidesteps and w/sidesteps and step ups had to focus significantly on form Physical Therapy Plan Frequency and Duration Frequency of Treatment 2x/Week Duration of Treatment 2 months Plan of Care Start Date 03/10/21 Plan of Care End Date 05/10/21 Next Visit Focus/Plan Next Note Type Treatment Note Next Visit Plan cont to wrk on glute med strength, PNF for post dep
--- NOTE | 2021-04-16 16:09 | PT.OTN ---
Current Diagnoses Pain in left knee (04/16/21) Unspecified abnormalities of gait and mobility (04/16/21) Abnormal posture (04/16/21) Weakness (04/16/21) Physical Therapy Treatment Note PT-OP-A Visit Information Start: 03/09/21 17:45 Freq: Status: Active Protocol: Document 04/16/21 14:48 [facility] (Rec: 04/16/21 16:09 [facility] [id number]) Out-Patient Physical Therapy Visit Information Visit Information Visit Type Treatment Note Visit Start Time 15:21 Visit Stop Time 16:01 Total Visit Minutes 40 Visit Number 7 Number of LINE SUPERVISOR Visits 0 PT-OP-B Current Condition Start: 03/09/21 17:45 Freq: Status: Active Protocol: Document 03/27/21 15:05 OF (Rec: 03/27/21 15:19 OF [id number]) Current Condition History of Current Condition Onset Date this winter Current Complaints L knee pain History of Current Condition Pt reports remembering climbing out the back of car and slammed knee into car this winter. She was seeing a virtual personal fitness trainer this winter and was doing jump squats and did bad form and hurt a lot. She improved form then that helped but then stopped and pain was worse and didn't resume. pt resumed going to the gym and it has been killing me. Tried to start light (did treadmill ( fast pace walking and working up running-has built up to 13 min) or elliptical (in the full range setting). It felt good when she was running but not after. Has not been to gym since xray 1.5 weeks ago. Does do stretching and arms also at gym typcially. Works remotely for a [employer] and sits w/1 knee bent and other leg over it and thinks that may be the main cause but pain does inc. She started new role w/company in Oct where seh has to be in office d/t back to back calls. Pt cannot sleep on her side d/t pain. Has been sleeping supine /prone. Prior Treatments and Tests Xray-IMPRESSION: Mild lateral subluxation of the patella, which may indicate medial ligamentous laxity but there also is note made of a relatively shallow trochlear groove which does predispose to lateral subluxation. Treatment Goals Patient/Caregiver Goals Be able to run again (prior to pandemic was training for 1/2 marathon), be able to sleep easily Prior Functional Status Baseline Function- ADL's Independent Baseline Function- Mobility Independent Personal Factors Other Personal Factors That May Effect R side pains, ant hip pain B Therapy/Recovery off/on, piriformis tendinosis R hip 10 years-chronic PT-OP-C Subjective Start: 03/09/21 17:45 Freq: Status: Active Protocol: Document 04/16/21 14:48 [facility] (Rec: 04/16/21 16:09 [facility] [id number]) OP-PT Subjective Patient Comments Patient Comments Pt tried the sleep positions but still did toss and turn. Her knee didn't hurt too bad while sleeping and felt okay waking up. Some sorenes after last session. Notes R knee is occ sore. Has been going on for a while PT-OP-D Balance Start: 03/09/21 17:45 Freq: Status: Active Protocol: Document 03/10/21 14:26 [facility] (Rec: 03/10/21 15:18 [facility] [id number]) Balance Tests Single Limb Standing Single Limb- Right 29 w/significant UE use and lat shear of hip Single Limb- Left 26 sec w/significant UE use and lat shear of hip PT-OP-F Manual Assessment Start: 03/09/21 17:45 Freq: Status: Active Protocol: Document 03/10/21 14:26 [facility] (Rec: 03/10/21 15:18 [facility] [id number]) Manual Assessments Soft Tissue Assessment Soft Tissue Mobility Assessment tightness HS, ITB, adductors, calf Joint Mobility Assessment Joint Mobility Assessment rearfoot valgus B, IR femurs & tibias B PT-OP-G Mobility & Gait Start: 03/09/21 17:45 Freq: Status: Active Protocol: Document 03/10/21 14:26 [facility] (Rec: 03/10/21 15:18 [facility] [id number]) OP Gait Assessment Comments Gait Comments Toes turned in, lat shear of hips w/WB, dec push off, inc LUE arm swing PT-OP-J Posture/Palpation/Skin Start: 03/09/21 17:45 Freq: Status: Active Protocol: Document 03/10/21 14:26 [facility] (Rec: 03/10/21 15:18 [facility] [id number]) Posture Evaluation Yris Postural Classification System Lumbar Protective Mechanism Left AP 0 Lumbar Protective Mechanism Right AP 0 Lumbar Protective Mechanism Left PA 0 Lumbar Protective Mechanism Right PA 0 PT-OP-K Range of Motion Start: 03/09/21 17:45 Freq: Status: Active Protocol: Document 03/10/21 14:26 [facility] (Rec: 03/10/21 15:18 [facility] [id number]) Knee Goniometric Range of Motion Knee Right Flexion Active (degrees) 130 Extension Active (degrees) 0 Left Flexion Active (degrees) 119 Extension Active (degrees) 5 Comments pain at end ranges PT-OP-L Special Tests Start: 03/09/21 17:45 Freq: Status: Active Protocol: Document 03/10/21 14:26 [facility] (Rec: 03/10/21 15:18 [facility] [id number]) Special Tests Knee Special Tests Straight Leg Raise Test Results 78 L, 88 R Steve's Test Test Results positve L Abbe Test Results mild tightness in quads L Varus- 25 Degrees Test Results neg Vaughan's Compression Test Results positve L Thessaly Test 5 Degrees Test Results pain Valgus- 25 Degrees Test Results neg Posterior Draw Test Results neg Cochran Chondromalacia Test Results neg -not a lot of pain noted w /knee ext resisted Corrie Test Test Results neg Jie's Test Results neg PT-OP-M Strength Start: 03/09/21 17:45 Freq: Status: Active Protocol: Document 03/10/21 14:26 [facility] (Rec: 03/10/21 15:18 [facility] [id number]) Hip Strength Hip Manual Muscle Testing Right Flexion (L2) 3+ Fair+ Extension (S1) 4 Good Abduction 3+ Fair+ Adduction 4+ Good+ External Rotation 4 Good Internal Rotation 4 Good Left Flexion (L2) 3+ Fair+ Extension (S1) 4 Good Abduction 3+ Fair+ Adduction 3+ Fair+ External Rotation 3 Fair Internal Rotation 4- Good- Comments pain w/rot Knee Strength Knee Manual Muscle Testing Right Flexion (S2) 5 Normal Extension (L3) 5 Normal Left Flexion (S2) 4- Good- Extension (L3) 5 Normal Ankle/Foot Strength Ankle and Foot Manual Muscle Testing Right Dorsiflexion (L4) 5 Normal Plantarflexion (S1) 5 Normal Inversion 5 Normal Eversion (S1) 5 Normal Comments 20 heel raises Left Dorsiflexion (L4) 5 Normal Plantarflexion (S1) 5 Normal Inversion 5 Normal Eversion (S1) 5 Normal PT-OP-Q Treatments Start: 03/09/21 17:45 Freq: Status: Active Protocol: Document 04/16/21 14:48 [facility] (Rec: 04/16/21 16:09 [facility] [id number]) Cardio Equipment Recumbent Bicycle Duration (Minutes) 5 Resistance 8 Seat Position 2 Therapeutic Exercises Standing Exercises hip hike Side bilateral Equipment Used 4 in step and rail Reps/Minutes 15 ea side step Side bilateral Equipment Used L1 tband Reps/Minutes 2x20ft step up Standing Exercise Name fwd & lat Side bilateral Equipment Used 5 in Reps/Minutes 10 ea Comments in mirror focus on knee position Manual Therapy Treatment Soft Tissue Mobilization HS Body Location L HS & calf Mobilization Type Rolling,Strumming Intensity/Depth Moderate Comments w/active HS stretch or APs Neuro Re-Education Treatment Balance Activities tandem Details stance trials B w/head turns SLS Comments 1. SLS trials B focus on neutral hip position 2. Y reaches B PT-OP-T Assessment and Plan Start: 03/09/21 17:45 Freq: Status: Active Protocol: Document 04/16/21 14:48 [facility] (Rec: 04/16/21 16:09 [facility] [id number]) Physical Therapy Assessment Goals incline Short Term Goal (STG) Pt will be able to go up/down stairs without inc pain. STG Duration 04/10/21 Nursing Home Goal (LTG) Pt will be able to go up/down incline without inc knee pain. LTG Duration 05/10/21 balance Nursing Home Goal (LTG) Pt will be able to do SLS B 30 sec w/arms at side w/o lat shift of pelvis or lat lean. LTG Duration 05/10/21 sleep Short Term Goal (STG) Pt will be able to prop her self with sleeping in order to dec pain and sleep through the night without inc pain. STG Duration 04/10/21 activities Short Term Goal (STG) Pt will be able to use elliptical at gym for working out without inc pain. STG Duration 04/10/21 Nursing Home Goal (LTG) Pt will be able to run 20 min without inc knee pain. LTG Duration 05/10/21 strength Short Term Goal (STG) pt will be indep w/HEP STG Duration 04/10/21 Nursing Home Goal (LTG) Pt will improve LE strength to at least 5/5 and LPM to at least 3/5 in all planes to show imrpoved stability in order to allow for pt to return to typical active lifestyle without inc pain. LTG Duration 05/10/21 LEFS Impairment 54/80 Short Term Goal (STG) Pt will improve score to at least 65/80 to show improved functional ability. STG Duration 04/10/21 Nursing Home Goal (LTG) Pt will improve score to at least 75/80 to show improved functional ability. LTG Duration 05/10/21 Assessment Summary Assessment Pt encouraged not to sit w/ legs ext after seh shared that is what she has been doing but to have feet on ground w/ hips just slightly higher. She tolerated exercises w/o c.o pain except w/a couple step ups but did require cueing B. Physical Therapy Plan Frequency and Duration Frequency of Treatment 2x/Week Duration of Treatment 2 months Plan of Care Start Date 03/10/21 Plan of Care End Date 05/10/21 Next Visit Focus/Plan Next Note Type Treatment Note Next Visit Plan cont to wrk on glute med strength, PNF for post dep
--- NOTE | 2021-04-20 16:55 | PT.OTN ---
Current Diagnoses Pain in left knee (04/20/21) Unspecified abnormalities of gait and mobility (04/20/21) Abnormal posture (04/20/21) Weakness (04/20/21) Physical Therapy Treatment Note PT-OP-A Visit Information Start: 03/09/21 17:45 Freq: Status: Active Protocol: Document 04/20/21 16:07 [facility] (Rec: 04/20/21 16:54 [facility] [id number]) Out-Patient Physical Therapy Visit Information Visit Information Visit Type Treatment Note Visit Start Time 16:06 Visit Stop Time 16:46 Total Visit Minutes 40 Visit Number 8 Number of TRANSFORMER INSPECTOR Visits 0 PT-OP-B Current Condition Start: 03/09/21 17:45 Freq: Status: Active Protocol: Document 03/27/21 15:05 OF (Rec: 03/27/21 15:19 OF [email or web address]) Current Condition History of Current Condition Onset Date this winter Current Complaints L knee pain History of Current Condition Pt reports remembering climbing out the back of car and slammed knee into car this winter. She was seeing a virtual dolphin trainer this winter and was doing jump squats and did bad form and hurt a lot. She improved form then that helped but then stopped and pain was worse and didn't resume. pt resumed going to the gym and it has been killing me. Tried to start light (did treadmill ( fast pace walking and working up running-has built up to 13 min) or elliptical (in the full range setting). It felt good when she was running but not after. Has not been to gym since xray 1.5 weeks ago. Does do stretching and arms also at gym typcially. Works remotely for a [employer] and sits w/1 knee bent and other leg over it and thinks that may be the main cause but pain does inc. She started new role w/company in Oct where seh has to be in office d/t back to back calls. Pt cannot sleep on her side d/t pain. Has been sleeping supine /prone. Prior Treatments and Tests Xray-IMPRESSION: Mild lateral subluxation of the patella, which may indicate medial ligamentous laxity but there also is note made of a relatively shallow trochlear groove which does predispose to lateral subluxation. Treatment Goals Patient/Caregiver Goals Be able to run again (prior to pandemic was training for 1/2 marathon), be able to sleep easily Prior Functional Status Baseline Function- ADL's Independent Baseline Function- Mobility Independent Personal Factors Other Personal Factors That May Effect R side pains, ant hip pain B Therapy/Recovery off/on, piriformis tendinosis R hip 10 years-chronic PT-OP-C Subjective Start: 03/09/21 17:45 Freq: Status: Active Protocol: Document 04/20/21 16:07 [facility] (Rec: 04/20/21 16:54 [facility] [id number]) OP-PT Subjective Patient Comments Patient Comments Pt notes she went to the gym the next day after therapy and worked out and felt ok. (15 min bike, HEP, leg press, arm work out and macanese twists). DId ok til was on her knees having to watch her kid at gymnastics then had a pop later and it bothered her more . notes sore sAT AND sun but better today. PT-OP-D Balance Start: 03/09/21 17:45 Freq: Status: Active Protocol: Document 03/10/21 14:26 [facility] (Rec: 03/10/21 15:18 [facility] [id number]) Balance Tests Single Limb Standing Single Limb- Right 29 w/significant UE use and lat shear of hip Single Limb- Left 26 sec w/significant UE use and lat shear of hip PT-OP-F Manual Assessment Start: 03/09/21 17:45 Freq: Status: Active Protocol: Document 03/10/21 14:26 [facility] (Rec: 03/10/21 15:18 [facility] [id number]) Manual Assessments Soft Tissue Assessment Soft Tissue Mobility Assessment tightness HS, ITB, adductors, calf Joint Mobility Assessment Joint Mobility Assessment rearfoot valgus B, IR femurs & tibias B PT-OP-G Mobility & Gait Start: 03/09/21 17:45 Freq: Status: Active Protocol: Document 03/10/21 14:26 [facility] (Rec: 03/10/21 15:18 [facility] [id number]) OP Gait Assessment Comments Gait Comments Toes turned in, lat shear of hips w/WB, dec push off, inc LUE arm swing PT-OP-J Posture/Palpation/Skin Start: 03/09/21 17:45 Freq: Status: Active Protocol: Document 03/10/21 14:26 [facility] (Rec: 03/10/21 15:18 [facility] [id number]) Posture Evaluation [facility] Postural Classification System Lumbar Protective Mechanism Left AP 0 Lumbar Protective Mechanism Right AP 0 Lumbar Protective Mechanism Left PA 0 Lumbar Protective Mechanism Right PA 0 PT-OP-K Range of Motion Start: 03/09/21 17:45 Freq: Status: Active Protocol: Document 03/10/21 14:26 [facility] (Rec: 03/10/21 15:18 [facility] [id number]) Knee Goniometric Range of Motion Knee Right Flexion Active (degrees) 130 Extension Active (degrees) 0 Left Flexion Active (degrees) 119 Extension Active (degrees) 5 Comments pain at end ranges PT-OP-L Special Tests Start: 03/09/21 17:45 Freq: Status: Active Protocol: Document 03/10/21 14:26 [facility] (Rec: 03/10/21 15:18 [facility] [id number]) Special Tests Knee Special Tests Straight Leg Raise Test Results 78 L, 88 R Steve's Test Test Results positve L Abbe Test Results mild tightness in quads L Varus- 25 Degrees Test Results neg Vaughan's Compression Test Results positve L Thessaly Test 5 Degrees Test Results pain Valgus- 25 Degrees Test Results neg Posterior Draw Test Results neg Cochran Chondromalacia Test Results neg -not a lot of pain noted w /knee ext resisted Corrie Test Test Results neg Jie's Test Results neg PT-OP-M Strength Start: 03/09/21 17:45 Freq: Status: Active Protocol: Document 03/10/21 14:26 [facility] (Rec: 03/10/21 15:18 [facility] [id number]) Hip Strength Hip Manual Muscle Testing Right Flexion (L2) 3+ Fair+ Extension (S1) 4 Good Abduction 3+ Fair+ Adduction 4+ Good+ External Rotation 4 Good Internal Rotation 4 Good Left Flexion (L2) 3+ Fair+ Extension (S1) 4 Good Abduction 3+ Fair+ Adduction 3+ Fair+ External Rotation 3 Fair Internal Rotation 4- Good- Comments pain w/rot Knee Strength Knee Manual Muscle Testing Right Flexion (S2) 5 Normal Extension (L3) 5 Normal Left Flexion (S2) 4- Good- Extension (L3) 5 Normal Ankle/Foot Strength Ankle and Foot Manual Muscle Testing Right Dorsiflexion (L4) 5 Normal Plantarflexion (S1) 5 Normal Inversion 5 Normal Eversion (S1) 5 Normal Comments 20 heel raises Left Dorsiflexion (L4) 5 Normal Plantarflexion (S1) 5 Normal Inversion 5 Normal Eversion (S1) 5 Normal PT-OP-Q Treatments Start: 03/09/21 17:45 Freq: Status: Active Protocol: Document 04/20/21 16:07 [facility] (Rec: 04/20/21 16:54 [facility] [id number]) Cardio Equipment Bicycle (Upright) Duration (Minutes) 5 Resistance 8 Seat Position 3 Therapeutic Exercises Standing Exercises hip hike Side bilateral Equipment Used 4 in step and rail Reps/Minutes 15 ea side step Side bilateral Equipment Used L3 tband Reps/Minutes 30ft step up Standing Exercise Name fwd & lat Side bilateral Equipment Used 5 in Reps/Minutes 10 ea Comments in mirror focus on knee position 1 Standing Exercise Name wall squat Side bilateral Resistance L3 band at knees Equipment Used 55cm tball Reps/Minutes 15 Manual Therapy Treatment Soft Tissue Mobilization calf Body Location L Mobilization Type Rolling Intensity/Depth Moderate Taping knee Treatment Focus med glide of patella Type of Tape Kinesio Tape Comments 1 Y on quad , upside down Y starting at inf tib tub, 1 Y med for med glide facilitation PT-OP-T Assessment and Plan Start: 03/09/21 17:45 Freq: Status: Active Protocol: Document 04/20/21 16:07 [facility] (Rec: 04/20/21 16:54 [facility] [id number]) Physical Therapy Assessment Goals incline Short Term Goal (STG) Pt will be able to go up/down stairs without inc pain. STG Duration 04/10/21 Chcf Goal (LTG) Pt will be able to go up/down incline without inc knee pain. LTG Duration 05/10/21 balance Conveyancer Goal (LTG) Pt will be able to do SLS B 30 sec w/arms at side w/o lat shift of pelvis or lat lean. LTG Duration 05/10/21 sleep Short Term Goal (STG) Pt will be able to prop her self with sleeping in order to dec pain and sleep through the night without inc pain. STG Duration 04/10/21 activities Short Term Goal (STG) Pt will be able to use elliptical at gym for working out without inc pain. STG Duration 04/10/21 Conveyancer Goal (LTG) Pt will be able to run 20 min without inc knee pain. LTG Duration 05/10/21 strength Short Term Goal (STG) pt will be indep w/HEP STG Duration 04/10/21 Chcf Goal (LTG) Pt will improve LE strength to at least 5/5 and LPM to at least 3/5 in all planes to show imrpoved stability in order to allow for pt to return to typical active lifestyle without inc pain. LTG Duration 05/10/21 LEFS Impairment 54/80 Short Term Goal (STG) Pt will improve score to at least 65/80 to show improved functional ability. STG Duration 04/10/21 Conveyancer Goal (LTG) Pt will improve score to at least 75/80 to show improved functional ability. LTG Duration 05/10/21 Assessment Summary Assessment Pt had imrpoved with knee flex PROM w/less pain after manual treatment. She has been noting R knee pain also when doing activities. She requires more cueing on RLE for knee position w/WB flex exercises. She was able to do all exercises today w/o L knee pain. Physical Therapy Plan Frequency and Duration Frequency of Treatment 2x/Week Duration of Treatment 2 months Plan of Care Start Date 03/10/21 Plan of Care End Date 05/10/21 Next Visit Focus/Plan Next Note Type Treatment Note Next Visit Plan cont to wrk on glute med strength, PNF for post dep
--- NOTE | 2021-04-23 10:45 | PT-OP ANOTE ---
Pt called re: no show and left message. Informed pt of next appt.
--- NOTE | 2021-05-05 15:27 | PT.OTRE ---
Current Diagnoses Pain in left knee (05/05/21) Unspecified abnormalities of gait and mobility (05/05/21) Abnormal posture (05/05/21) Weakness (05/05/21) Past Medical History (Last Updated 02/27/21 @ 13:09 by Michell Snow MD) Abnormal Pap smear of cervix (~2002) Chicken pox (~1989) Genital warts (~2004) Human papilloma virus (~2002) Shoulder dystocia Spontaneous vaginal delivery Surgical History (Last Updated 10/01/18 @ 21:43 by Lore Harris) Anesthesia History of elective History of third molar tooth extraction Status post loop electrosurgical excision procedure (LEEP) of cervix (03/11/17) Visit Care Team Role Provider Type Michell Snow MD Attending Provider Physician Primary Care Provider Referring Provider Specialty: [facility] Address: [address] [place] [address], [facility] Email: [email or web address] Physical Therapy Re-Evaluation PT-OP-A Visit Information Start: 03/09/21 17:45 Freq: Status: Active Protocol: Document 05/05/21 14:28 OF (Rec: 05/05/21 15:27 OF [email or web address]) Out-Patient Physical Therapy Visit Information Visit Information Visit Type Treatment Note Visit Note Pt states she has not performed HEP due to being on vacation. Her R knee is more painful than L Visit Start Time 13:49 Visit Stop Time 14:28 Total Visit Minutes 39 Visit Number 9 PT-OP-B Current Condition Start: 03/09/21 17:45 Freq: Status: Active Protocol: Document 03/27/21 15:05 OF (Rec: 03/27/21 15:19 OF [email or web address]) Current Condition History of Current Condition Onset Date this winter Current Complaints L knee pain History of Current Condition Pt reports remembering climbing out the back of car and slammed knee into car this winter. She was seeing a virtual personal banker this winter and was doing jump squats and did bad form and hurt a lot. She improved form then that helped but then stopped and pain was worse and didn't resume. pt resumed going to the gym and it has been killing me. Tried to start light (did treadmill ( fast pace walking and working up running-has built up to 13 min) or elliptical (in the full range setting). It felt good when she was running but not after. Has not been to gym since xray 1.5 weeks ago. Does do stretching and arms also at gym typcially. Works remotely for a [employer] and sits w/1 knee bent and other leg over it and thinks that may be the main cause but pain does inc. She started new role w/company in Oct where seh has to be in office d/t back to back calls. Pt cannot sleep on her side d/t pain. Has been sleeping supine /prone. Prior Treatments and Tests Xray-IMPRESSION: Mild lateral subluxation of the patella, which may indicate medial ligamentous laxity but there also is note made of a relatively shallow trochlear groove which does predispose to lateral subluxation. Treatment Goals Patient/Caregiver Goals Be able to run again (prior to pandemic was training for 1/2 marathon), be able to sleep easily Prior Functional Status Baseline Function- ADL's Independent Baseline Function- Mobility Independent Personal Factors Other Personal Factors That May Effect R side pains, ant hip pain B Therapy/Recovery off/on, piriformis tendinosis R hip 10 years-chronic PT-OP-C Subjective Start: 03/09/21 17:45 Freq: Status: Active Protocol: Document 05/05/21 14:28 OF (Rec: 05/05/21 15:27 OF [email or web address]) OP-PT Subjective Patient Comments Patient Comments pt states her R knee is more painful than L Patient Reported Progress Same OP-PT Pain Assessment Pain Assessment Grid Paper Pain Assessment Grid Completed No Location L knee Pain Location Details R knee Intensity 3 Scale Used Numeric (0 - 10) Description Aching Frequency Frequent Pain Aggravating Factors ADL's,Activity,Exercise, Standing Other Pain Aggravating Factors walking, hiking Pain Alleviating Factors Rest Home Pain Medication Use Pain Medications Used No PT-OP-D Balance Start: 03/09/21 17:45 Freq: Status: Active Protocol: Document 03/10/21 14:26 [facility] (Rec: 03/10/21 15:18 [facility] [id number]) Balance Tests Single Limb Standing Single Limb- Right 29 w/significant UE use and lat shear of hip Single Limb- Left 26 sec w/significant UE use and lat shear of hip PT-OP-F Manual Assessment Start: 03/09/21 17:45 Freq: Status: Active Protocol: Document 03/10/21 14:26 [facility] (Rec: 03/10/21 15:18 [facility] [id number]) Manual Assessments Soft Tissue Assessment Soft Tissue Mobility Assessment tightness HS, ITB, adductors, calf Joint Mobility Assessment Joint Mobility Assessment rearfoot valgus B, IR femurs & tibias B PT-OP-G Mobility & Gait Start: 03/09/21 17:45 Freq: Status: Active Protocol: Document 03/10/21 14:26 [facility] (Rec: 03/10/21 15:18 [facility] [id number]) OP Gait Assessment Comments Gait Comments Toes turned in, lat shear of hips w/WB, dec push off, inc LUE arm swing PT-OP-J Posture/Palpation/Skin Start: 03/09/21 17:45 Freq: Status: Active Protocol: Document 03/10/21 14:26 [facility] (Rec: 03/10/21 15:18 [facility] [id number]) Posture Evaluation [facility] Postural Classification System Lumbar Protective Mechanism Left AP 0 Lumbar Protective Mechanism Right AP 0 Lumbar Protective Mechanism Left PA 0 Lumbar Protective Mechanism Right PA 0 PT-OP-K Range of Motion Start: 03/09/21 17:45 Freq: Status: Active Protocol: Document 03/10/21 14:26 [facility] (Rec: 03/10/21 15:18 [facility] [id number]) Knee Goniometric Range of Motion Knee Measured in Degrees Right Flexion Active (degrees) 130 Extension Active (degrees) 0 Left Flexion Active (degrees) 119 Extension Active (degrees) 5 Comments pain at end ranges PT-OP-L Special Tests Start: 03/09/21 17:45 Freq: Status: Active Protocol: Document 03/10/21 14:26 [facility] (Rec: 03/10/21 15:18 [facility] [id number]) Special Tests Knee Special Tests Straight Leg Raise Test Results 78 L, 88 R Steve's Test Test Results positve L Abbe Test Results mild tightness in quads L Varus- 25 Degrees Test Results neg Vaughan's Compression Test Results positve L Thessaly Test 5 Degrees Test Results pain Valgus- 25 Degrees Test Results neg Posterior Draw Test Results neg Cochran Chondromalacia Test Results neg -not a lot of pain noted w /knee ext resisted Corrie Test Test Results neg Jei's Test Results neg PT-OP-M Strength Start: 03/09/21 17:45 Freq: Status: Active Protocol: Document 03/10/21 14:26 [facility] (Rec: 03/10/21 15:18 [facility] [id number]) Hip Strength Hip Manual Muscle Testing Right Flexion (L2) 3+ Fair+ Extension (S1) 4 Good Abduction 3+ Fair+ Adduction 4+ Good+ External Rotation 4 Good Internal Rotation 4 Good Left Flexion (L2) 3+ Fair+ Extension (S1) 4 Good Abduction 3+ Fair+ Adduction 3+ Fair+ External Rotation 3 Fair Internal Rotation 4- Good- Comments pain w/rot Knee Strength Knee Manual Muscle Testing Right Flexion (S2) 5 Normal Extension (L3) 5 Normal Left Flexion (S2) 4- Good- Extension (L3) 5 Normal Ankle/Foot Strength Ankle and Foot Manual Muscle Testing Right Dorsiflexion (L4) 5 Normal Plantarflexion (S1) 5 Normal Inversion 5 Normal Eversion (S1) 5 Normal Comments 20 heel raises Left Dorsiflexion (L4) 5 Normal Plantarflexion (S1) 5 Normal Inversion 5 Normal Eversion (S1) 5 Normal PT-OP-Q Treatments Start: 03/09/21 17:45 Freq: Status: Active Protocol: Document 05/05/21 14:28 OF (Rec: 05/05/21 15:27 OF [email or web address]) Cardio Equipment Bicycle (Upright) Duration (Minutes) 5 Resistance 8 Seat Position 2 Gym Equipment Shuttle Recovery Bilateral Squats Details single L LE today Dual 50 Resistance 37#, 50 Shuttle Recovery Platform Stable Reps/Time 3x15 Therapeutic Exercises Supine Exercises core Supine Exercise Name isometric B flex Reps/Minutes 30 secx2 HS Supine Exercise Name active stretch Side left Reps/Minutes 2x15 sec Comments cues for slow steady tension Prone Exercises hip ext Prone Exercise Name alt Side bilateral Reps/Minutes 2x10 Comments verbal cues for glute recruitment Sidelying Exercises abd Sidelying Exercise Name hip Side bilateral Reps/Minutes 2x10 sidelying ER Sidelying Exercise Name clamshells Side bilateral Reps/Minutes 2x10 Sitting Exercises sit to stand Side bilateral Reps/Minutes 2x10 Comments cues for slowing descent Standing Exercises hip hike Side bilateral Equipment Used 4 in step and rail Reps/Minutes 15 ea side step Side bilateral Equipment Used L3 tband Reps/Minutes 30ft step up Standing Exercise Name fwd & lat Side bilateral Equipment Used 5 in Reps/Minutes 10 ea Comments in mirror focus on knee position Self-Care/Home Management Treatment Education Patient Education Home Exercise Program PT-OP-T Assessment and Plan Start: 03/09/21 17:45 Freq: Status: Active Protocol: Document 05/05/21 14:28 OF (Rec: 05/05/21 15:27 OF [id number]) Physical Therapy Assessment Rehab Potential Rehabilitation Potential Good Evaluation Complexity Number of Personal Factors/Comorbidities 1-2 Number of Body Systems Impaired 1-2 Clinical Presentation at Evaluation Stable Impairments Impairments Soft Tissue Mobility,Strength Goals incline Short Term Goal (STG) Pt will be able to go up/down stairs without inc pain. STG Duration 04/10/21 Chcf Goal (LTG) Pt will be able to go up/down incline without inc knee pain. LTG Duration 05/10/21 balance Chcf Goal (LTG) Pt will be able to do SLS B 30 sec w/arms at side w/o lat shift of pelvis or lat lean. LTG Duration 05/10/21 sleep Short Term Goal (STG) Pt will be able to prop her self with sleeping in order to dec pain and sleep through the night without inc pain. STG Duration Met activities Short Term Goal (STG) Pt will be able to use elliptical at gym for working out without inc pain. STG Duration 04/10/21 Chcf Goal (LTG) Pt will be able to run 20 min without inc knee pain. LTG Duration 05/10/21 strength Short Term Goal (STG) pt will be indep w/HEP STG Duration 04/10/21 Chcf Goal (LTG) Pt will improve LE strength to at least 5/5 and LPM to at least 3/5 in all planes to show imrpoved stability in order to allow for pt to return to typical active lifestyle without inc pain. LTG Duration 05/10/21 LEFS Impairment 54/80 Short Term Goal (STG) Pt will improve score to at least 65/80 to show improved functional ability. STG Duration 04/10/21 Tire Fabric Inspector Goal (LTG) Pt will improve score to at least 75/80 to show improved functional ability. LTG Duration 05/10/21 Progress Towards Goals Progress Towards Goals Progressing Toward Goals Assessment Summary Assessment Pt has improved L knee control with sit to stand, she has not performed HEP since last tx. She has difficulty performing 2 reps, increased R lateral knee pain. Physical Therapy Plan Frequency and Duration Frequency of Treatment 1x/Week Plan of Care Start Date 03/10/21 Plan of Care End Date 05/10/21 Next Visit Focus/Plan Next Note Type Treatment Note Next Visit Plan re assess HEP performance, progress glute strengthening, knee control
--- NOTE | 2021-05-11 18:22 | PT.OTN ---
Current Diagnoses Pain in left knee (05/11/21) Unspecified abnormalities of gait and mobility (05/11/21) Abnormal posture (05/11/21) Weakness (05/11/21) Physical Therapy Treatment Note PT-OP-A Visit Information Start: 03/09/21 17:45 Freq: Status: Active Protocol: Document 05/11/21 14:39 [facility] (Rec: 05/11/21 15:22 [facility] [id number]) Out-Patient Physical Therapy Visit Information Visit Information Visit Type Progress Note Visit Start Time 14:35 Visit Stop Time 15:15 Total Visit Minutes 40 Visit Number 10 Number of RESOLUTION SPECIALIST Visits 0 PT-OP-B Current Condition Start: 03/09/21 17:45 Freq: Status: Active Protocol: Document 03/27/21 15:05 OF (Rec: 03/27/21 15:19 OF [id number]) Current Condition History of Current Condition Onset Date this winter Current Complaints L knee pain History of Current Condition Pt reports remembering climbing out the back of car and slammed knee into car this winter. She was seeing a virtual parent trainer this winter and was doing jump squats and did bad form and hurt a lot. She improved form then that helped but then stopped and pain was worse and didn't resume. pt resumed going to the gym and it has been killing me. Tried to start light (did treadmill ( fast pace walking and working up running-has built up to 13 min) or elliptical (in the full range setting). It felt good when she was running but not after. Has not been to gym since xray 1.5 weeks ago. Does do stretching and arms also at gym typcially. Works remotely for a [email or web address] and sits w/1 knee bent and other leg over it and thinks that may be the main cause but pain does inc. She started new role w/company in Oct where seh has to be in office d/t back to back calls. Pt cannot sleep on her side d/t pain. Has been sleeping supine /prone. Prior Treatments and Tests Xray-IMPRESSION: Mild lateral subluxation of the patella, which may indicate medial ligamentous laxity but there also is note made of a relatively shallow trochlear groove which does predispose to lateral subluxation. Treatment Goals Patient/Caregiver Goals Be able to run again (prior to pandemic was training for 1/2 marathon), be able to sleep easily Prior Functional Status Baseline Function- ADL's Independent Baseline Function- Mobility Independent Personal Factors Other Personal Factors That May Effect R side pains, ant hip pain B Therapy/Recovery off/on, piriformis tendinosis R hip 10 years-chronic PT-OP-C Subjective Start: 03/09/21 17:45 Freq: Status: Active Protocol: Document 05/11/21 14:39 [facility] (Rec: 05/11/21 15:22 [facility] [id number]) OP-PT Subjective Patient Comments Patient Comments Pt reprots she went to the beach and did a lot of hiking on the beach. R knee bothered her more than L. Notes yesterday she was on her feet a lot and L bothered her. Overall L is doing better but R knee is more irritated now. If she gets any sharp pains on it, then it typically is behind it now vs in front Patient Reported Progress Improving PT-OP-D Balance Start: 03/09/21 17:45 Freq: Status: Active Protocol: Document 03/10/21 14:26 [facility] (Rec: 03/10/21 15:18 [facility] [id number]) Balance Tests Single Limb Standing Single Limb- Right 29 w/significant UE use and lat shear of hip Single Limb- Left 26 sec w/significant UE use and lat shear of hip PT-OP-F Manual Assessment Start: 03/09/21 17:45 Freq: Status: Active Protocol: Document 03/10/21 14:26 [facility] (Rec: 03/10/21 15:18 [facility] [id number]) Manual Assessments Soft Tissue Assessment Soft Tissue Mobility Assessment tightness HS, ITB, adductors, calf Joint Mobility Assessment Joint Mobility Assessment rearfoot valgus B, IR femurs & tibias B PT-OP-G Mobility & Gait Start: 03/09/21 17:45 Freq: Status: Active Protocol: Document 03/10/21 14:26 [facility] (Rec: 03/10/21 15:18 [facility] [id number]) OP Gait Assessment Comments Gait Comments Toes turned in, lat shear of hips w/WB, dec push off, inc LUE arm swing PT-OP-J Posture/Palpation/Skin Start: 03/09/21 17:45 Freq: Status: Active Protocol: Document 05/11/21 14:39 [facility] (Rec: 05/11/21 15:22 [facility] [id number]) Posture Evaluation [facility] Postural Classification System Lumbar Protective Mechanism Left AP 2 Lumbar Protective Mechanism Right AP 0 Lumbar Protective Mechanism Left PA 2 Lumbar Protective Mechanism Right PA 2 PT-OP-K Range of Motion Start: 03/09/21 17:45 Freq: Status: Active Protocol: Document 03/10/21 14:26 [facility] (Rec: 03/10/21 15:18 [facility] [id number]) Knee Goniometric Range of Motion Knee Right Flexion Active (degrees) 130 Extension Active (degrees) 0 Left Flexion Active (degrees) 119 Extension Active (degrees) 5 Comments pain at end ranges PT-OP-L Special Tests Start: 03/09/21 17:45 Freq: Status: Active Protocol: Document 03/10/21 14:26 [facility] (Rec: 03/10/21 15:18 [facility] [id number]) Special Tests Knee Special Tests Straight Leg Raise Test Results 78 L, 88 R Steve's Test Test Results positve L Abbe Test Results mild tightness in quads L Varus- 25 Degrees Test Results neg Vaughan's Compression Test Results positve L Thessaly Test 5 Degrees Test Results pain Valgus- 25 Degrees Test Results neg Posterior Draw Test Results neg Cochran Chondromalacia Test Results neg -not a lot of pain noted w /knee ext resisted Corrie Test Test Results neg Jie's Test Results neg PT-OP-M Strength Start: 03/09/21 17:45 Freq: Status: Active Protocol: Document 05/11/21 14:39 [facility] (Rec: 05/11/21 15:22 [facility] [id number]) Hip Strength Hip Manual Muscle Testing Right Flexion (L2) 4 Good Extension (S1) 4+ Good+ Abduction 4+ Good+ Adduction 4 Good External Rotation 4+ Good+ Internal Rotation 5 Normal Left Flexion (L2) 4 Good Extension (S1) 4+ Good+ Abduction 4+ Good+ Adduction 4+ Good+ External Rotation 4+ Good+ Internal Rotation 5 Normal Knee Strength Knee Manual Muscle Testing Right Flexion (S2) 5 Normal Extension (L3) 5 Normal Left Flexion (S2) 5 Normal Extension (L3) 5 Normal Comments pain w/ext Ankle/Foot Strength Ankle and Foot Manual Muscle Testing Right Dorsiflexion (L4) 5 Normal Plantarflexion (S1) 5 Normal Inversion 5 Normal Eversion (S1) 5 Normal Comments 20 heel raises Left Dorsiflexion (L4) 5 Normal Plantarflexion (S1) 5 Normal Inversion 5 Normal Eversion (S1) 5 Normal PT-OP-Q Treatments Start: 03/09/21 17:45 Freq: Status: Active Protocol: Document 05/11/21 14:39 [facility] (Rec: 05/11/21 15:22 [facility] [id number]) Cardio Equipment Recumbent Bicycle Duration (Minutes) 5 Resistance 8 Seat Position 2 Gym Equipment Therapeutic Ball supine Ball Size/Color 55cm Body Position Supine Comments 1. DL bridge w/5 sec hold x10 2. DL bridge w/HS curl x10 Therapeutic Exercises Sidelying Exercises abd Sidelying Exercise Name hip Side bilateral Reps/Minutes x10 sidelying ER Sidelying Exercise Name clamshells Side bilateral Reps/Minutes x10 Standing Exercises SLS Standing Exercise Name trials B hip hike Side bilateral Equipment Used 4 in step and rail Reps/Minutes 15 ea side step Side bilateral Equipment Used L3 tband Reps/Minutes 30ft PT-OP-T Assessment and Plan Start: 03/09/21 17:45 Freq: Status: Active Protocol: Document 05/11/21 14:39 [facility] (Rec: 05/11/21 15:22 [facility] [id number]) Physical Therapy Assessment Goals incline Short Term Goal (STG) Pt will be able to go up/down stairs without inc pain. 712- L knee no pain, R knee pain STG Duration 06/11/21 Assisted Goal (LTG) Pt will be able to go up/down incline without inc knee pain. 05/11-L knee did well, R knee bothering her LTG Duration 07/12/21 balance Assisted Goal (LTG) Pt will be able to do SLS B 30 sec w/arms at side w/o lat shift of pelvis or lat lean. 05/11-able to but has to move arms LTG Duration 07/12/21 activities Short Term Goal (STG) Pt will be able to use elliptical at gym for working out without inc pain. 05/11-has not tried STG Duration 06/11/21 Assisted Goal (LTG) Pt will be able to run 20 min without inc knee pain. 05/11-Pt reports no R knee was catching a lot. Notes she chased kids only, but no extended run LTG Duration 07/12/21 strength Short Term Goal (STG) pt will be indep w/HEP STG Duration achieved Arch C[employer]ion Skiving Machine Operator Goal (LTG) Pt will improve LE strength to at least 5/5 and LPM to at least 3/5 in all planes to show imrpoved stability in order to allow for pt to return to typical active lifestyle without inc pain. 05/11improving LTG Duration 07/12/21 LEFS Impairment 54/80 Short Term Goal (STG) Pt will improve score to at least 65/80 to show improved functional ability. 05/11-n/t STG Duration 06/11/21 Assisted Goal (LTG) Pt will improve score to at least 75/80 to show improved functional ability. LTG Duration 07/12/21 Assessment Summary Assessment Pt is making good progress towards goals but has dec functional ability d/t R Knee bothering her more now. L knee is feeling good most of the time at this time. Pt encouraged to get referral for R Knee d/t likely benefiting from manual therapy. She wouldb enefit from cont PT to cont to wrork on returning to full activities without pain. Physical Therapy Plan Frequency and Duration Frequency of Treatment 1-2x/Week Duration of Treatment 2 months Plan of Care Start Date 05/11/21 Plan of Care End Date 07/12/21 Therapeutic Interventions Therapeutic Interventions Aquatic Therapy,Balance Training,Gait Training,Home Exercise Program,Joint Mobilizations,Manual Therapy, Neuromuscular Re-education, Patient/Caregiver Education, Self-Care/Home Management,Soft Tissue Mobilization,Taping, Therapeutic Activities, Therapeutic Exercises Modalities Cold Pack/Ice Massage,Electric Stimulation,Hot Packs, Infrared Therapy,Iontophoresis ,Ultrasound Next Visit Focus/Plan Next Note Type Treatment Note Next Visit Plan re assess HEP performance, progress glute strengthening, knee control
--- NOTE | 2021-05-11 18:22 | PT.OPPOC ---
Physical, Occupational & Speech Therapy At [facility] Current Diagnoses Pain in left knee (05/11/21) Unspecified abnormalities of gait and mobility (05/11/21) Abnormal posture (05/11/21) Weakness (05/11/21) Visit Care Team Role Provider Type Michell Snow MD Attending Provider Physician Primary Care Provider Referring Provider Specialty: [facility] Address: [address] [place] [address], [facility] [place], [address] Email: [email or web address] Plan Of Care PT-OP-T Assessment and Plan Start: 03/09/21 17:45 Freq: Status: Active Protocol: Document 05/11/21 14:39 [facility] (Rec: 05/11/21 15:22 [facility] [id number]) Physical Therapy Assessment Goals incline Short Term Goal (STG) Pt will be able to go up/down stairs without inc pain. 712- L knee no pain, R knee pain STG Duration 06/11/21 Orthopedics Nurse Goal (LTG) Pt will be able to go up/down incline without inc knee pain. 05/11-L knee did well, R knee bothering her LTG Duration 07/12/21 balance Orthopedics Nurse Goal (LTG) Pt will be able to do SLS B 30 sec w/arms at side w/o lat shift of pelvis or lat lean. 05/11-able to but has to move arms LTG Duration 07/12/21 activities Short Term Goal (STG) Pt will be able to use elliptical at gym for working out without inc pain. 05/11-has not tried STG Duration 06/11/21 Orthopedics Nurse Goal (LTG) Pt will be able to run 20 min without inc knee pain. 05/11-Pt reports no R knee was catching a lot. Notes she chased kids only, but no extended run LTG Duration 07/12/21 strength Short Term Goal (STG) pt will be indep w/HEP STG Duration achieved Mcfp Goal (LTG) Pt will improve LE strength to at least 5/5 and LPM to at least 3/5 in all planes to show imrpoved stability in order to allow for pt to return to typical active lifestyle without inc pain. 05/11improving LTG Duration 07/12/21 LEFS Impairment 54/80 Short Term Goal (STG) Pt will improve score to at least 65/80 to show improved functional ability. 05/11-n/t STG Duration 06/11/21 Orthopedics Nurse Goal (LTG) Pt will improve score to at least 75/80 to show improved functional ability. LTG Duration 07/12/21 Assessment Summary Assessment Pt is making good progress towards goals but has dec functional ability d/t R Knee bothering her more now. L knee is feeling good most of the time at this time. Pt encouraged to get referral for R Knee d/t likely benefiting from manual therapy. She wouldb enefit from cont PT to cont to wrork on returning to full activities without pain. Physical Therapy Plan Frequency and Duration Frequency of Treatment 1-2x/Week Duration of Treatment 2 months Plan of Care Start Date 05/11/21 Plan of Care End Date 07/12/21 Therapeutic Interventions Therapeutic Interventions Aquatic Therapy,Balance Training,Gait Training,Home Exercise Program,Joint Mobilizations,Manual Therapy, Neuromuscular Re-education, Patient/Caregiver Education, Self-Care/Home Management,Soft Tissue Mobilization,Taping, Therapeutic Activities, Therapeutic Exercises Modalities Cold Pack/Ice Massage,Electric Stimulation,Hot Packs, Infrared Therapy,Iontophoresis ,Ultrasound Next Visit Focus/Plan Next Note Type Treatment Note Next Visit Plan re assess HEP performance, progress glute strengthening, knee control Plan of Care Dates Plan of Care Start Date 05/11/21 Plan of Care End Date 07/12/21 Electronically Signed by: Michell Nesbitt, PT 05/11/21 0726 Please Sign and Return: I have reviewed this Plan of Care and certify that the skilled therapy services above are required to meet the patient?s needs. Physician Signature Date Printed Name and Credentials Clinical Instructor Signature Printed Name and Credentials
--- NOTE | 2021-05-20 09:03 | PT.OTRE ---
Current Diagnoses Pain in left knee (05/20/21) Unspecified abnormalities of gait and mobility (05/20/21) Abnormal posture (05/20/21) Weakness (05/20/21) Past Medical History (Last Updated 02/27/21 @ 13:09 by Michell Snow MD) Abnormal Pap smear of cervix (~2002) Chicken pox (~1989) Genital warts (~2004) Human papilloma virus (~2002) Shoulder dystocia Spontaneous vaginal delivery Surgical History (Last Updated 10/01/18 @ 21:43 by Lore Harris) Anesthesia History of elective History of third molar tooth extraction Status post loop electrosurgical excision procedure (LEEP) of cervix (03/11/17) Visit Care Team Role Provider Type Michell Snow MD Attending Provider Physician Primary Care Provider Referring Provider Specialty: [facility] Address: [address] [address], [facility] Email: [email or web address] Physical Therapy Re-Evaluation PT-OP-A Visit Information Start: 03/09/21 17:45 Freq: Status: Active Protocol: Document 05/20/21 08:23 [facility] (Rec: 05/20/21 09:03 [facility] [id number]) Out-Patient Physical Therapy Visit Information Visit Information Visit Type Re-Evaluation Visit Start Time 08:18 Visit Stop Time 08:58 Total Visit Minutes 40 Visit Number 11 Number of TROUT FARMER Visits 0 PT-OP-B Current Condition Start: 03/09/21 17:45 Freq: Status: Active Protocol: Document 05/20/21 08:23 [facility] (Rec: 05/20/21 09:03 [facility] [id number]) Current Condition History of Current Condition Onset Date this winter Current Complaints L knee pain History of Current Condition 05/20-Pt reprots R knee had been hurting for a while too but no known injury IE:Pt reports remembering climbing out the back of car and slammed knee into car this winter. She was seeing a virtual personal support worker this winter and was doing jump squats and did bad form and hurt a lot. She improved form then that helped but then stopped and pain was worse and didn't resume. pt resumed going to the gym and it has been killing me. Tried to start light (did treadmill ( fast pace walking and working up running-has built up to 13 min) or elliptical (in the full range setting). It felt good when she was running but not after. Has not been to gym since xray 1.5 weeks ago. Does do stretching and arms also at gym typcially. Works remotely for a [employer] and sits w/1 knee bent and other leg over it and thinks that may be the main cause but pain does inc. She started new role w/company in Oct where seh has to be in office d/t back to back calls. Pt cannot sleep on her side d/t pain. Has been sleeping supine /prone. Prior Treatments and Tests Xray-IMPRESSION: Mild lateral subluxation of the patella, which may indicate medial ligamentous laxity but there also is note made of a relatively shallow trochlear groove which does predispose to lateral subluxation. PT-OP-C Subjective Start: 03/09/21 17:45 Freq: Status: Active Protocol: Document 05/20/21 08:23 [facility] (Rec: 05/20/21 09:03 [facility] [id number]) OP-PT Subjective Patient Comments Patient Comments Pt reports L knee tweaks occ. Since not walking on sand, R knee is better PT-OP-D Balance Start: 03/09/21 17:45 Freq: Status: Active Protocol: Document 05/20/21 08:23 [facility] (Rec: 05/20/21 09:03 [facility] [id number]) Balance Tests Single Limb Standing Single Limb- Right 21 w/occ UE use and lat shear of hip Single Limb- Left >30 sec w/occ UE use and lat shear of hip PT-OP-F Manual Assessment Start: 03/09/21 17:45 Freq: Status: Active Protocol: Document 03/10/21 14:26 [facility] (Rec: 03/10/21 15:18 [facility] [id number]) Manual Assessments Soft Tissue Assessment Soft Tissue Mobility Assessment tightness HS, ITB, adductors, calf Joint Mobility Assessment Joint Mobility Assessment rearfoot valgus B, IR femurs & tibias B PT-OP-G Mobility & Gait Start: 03/09/21 17:45 Freq: Status: Active Protocol: Document 03/10/21 14:26 [facility] (Rec: 03/10/21 15:18 [facility] [id number]) OP Gait Assessment Comments Gait Comments Toes turned in, lat shear of hips w/WB, dec push off, inc LUE arm swing PT-OP-J Posture/Palpation/Skin Start: 03/09/21 17:45 Freq: Status: Active Protocol: Document 05/11/21 14:39 [facility] (Rec: 05/11/21 15:22 [facility] [id number]) Posture Evaluation [facility] Postural Classification System Lumbar Protective Mechanism Left AP 2 Lumbar Protective Mechanism Right AP 0 Lumbar Protective Mechanism Left PA 2 Lumbar Protective Mechanism Right PA 2 PT-OP-K Range of Motion Start: 03/09/21 17:45 Freq: Status: Active Protocol: Document 05/20/21 08:23 [facility] (Rec: 05/20/21 09:03 [facility] [id number]) Knee Goniometric Range of Motion Knee Measured in Degrees Right Flexion Active (degrees) 133 Extension Active (degrees) 2 Comments pain w/ext Left Flexion Active (degrees) 130 Extension Active (degrees) 0 PT-OP-L Special Tests Start: 03/09/21 17:45 Freq: Status: Active Protocol: Document 05/20/21 08:23 [facility] (Rec: 05/20/21 09:03 [facility] [id number]) Special Tests Knee Special Tests Straight Leg Raise Test Results 79 deg B Steve's Test Test Results positve B Abbe Test Results mild tightness in quads R>L Varus- 25 Degrees Test Results neg B Vaughan's Compression Test Results positve B Thessaly Test 5 Degrees Test Results neg B Valgus- 25 Degrees Test Results neg Posterior Draw Test Results neg Cochran Chondromalacia Test Results does not change pain w/med glide R Corrie Test Test Results neg B Jie's Test Results neg B PT-OP-M Strength Start: 03/09/21 17:45 Freq: Status: Active Protocol: Document 05/11/21 14:39 [facility] (Rec: 05/11/21 15:22 [facility] [id number]) Hip Strength Hip Manual Muscle Testing Right Flexion (L2) 4 Good Extension (S1) 4+ Good+ Abduction 4+ Good+ Adduction 4 Good External Rotation 4+ Good+ Internal Rotation 5 Normal Left Flexion (L2) 4 Good Extension (S1) 4+ Good+ Abduction 4+ Good+ Adduction 4+ Good+ External Rotation 4+ Good+ Internal Rotation 5 Normal Knee Strength Knee Manual Muscle Testing Right Flexion (S2) 5 Normal Extension (L3) 5 Normal Left Flexion (S2) 5 Normal Extension (L3) 5 Normal Comments pain w/ext Ankle/Foot Strength Ankle and Foot Manual Muscle Testing Right Dorsiflexion (L4) 5 Normal Plantarflexion (S1) 5 Normal Inversion 5 Normal Eversion (S1) 5 Normal Comments 20 heel raises Left Dorsiflexion (L4) 5 Normal Plantarflexion (S1) 5 Normal Inversion 5 Normal Eversion (S1) 5 Normal PT-OP-Q Treatments Start: 03/09/21 17:45 Freq: Status: Active Protocol: Document 05/20/21 08:23 [facility] (Rec: 05/20/21 09:03 [facility] [id number]) Cardio Equipment Bicycle (Upright) Duration (Minutes) 5 Resistance 8 Seat Position 2 Therapeutic Exercises Supine Exercises quad set Supine Exercise Name towel under Side right Reps/Minutes 5 sec x10 Manual Therapy Treatment Soft Tissue Mobilization ITB Body Location R Mobilization Type Rolling Intensity/Depth Moderate HS Body Location R HS Mobilization Type Rolling,Strumming Intensity/Depth Moderate quad Body Location R lat Mobilization Type Rolling,Strumming Intensity/Depth Moderate PT-OP-T Assessment and Plan Start: 03/09/21 17:45 Freq: Status: Active Protocol: Document 05/20/21 08:23 [facility] (Rec: 05/20/21 09:03 [facility] [id number]) Physical Therapy Assessment Goals incline Short Term Goal (STG) Pt will be able to go up/down stairs without inc pain. 712- L knee no pain, R knee pain STG Duration 06/11/21 Senior Care Goal (LTG) Pt will be able to go up/down incline without inc knee pain. 05/11-L knee did well, R knee bothering her LTG Duration 07/21/21 balance Alumni Relations Officer Goal (LTG) Pt will be able to do SLS B 30 sec w/arms at side w/o lat shift of pelvis or lat lean. 05/11-able to but has to move arms LTG Duration 07/12/21 activities Short Term Goal (STG) Pt will be able to use elliptical at gym for working out without inc pain. 05/11-has not tried STG Duration 06/11/21 Alumni Relations Officer Goal (LTG) Pt will be able to run 20 min without inc knee pain. 05/11-Pt reports no R knee was catching a lot. Notes she chased kids only, but no extended run LTG Duration 07/12/21 strength Short Term Goal (STG) pt will be indep w/HEP STG Duration achieved Senior Care Goal (LTG) Pt will improve LE strength to at least 5/5 and LPM to at least 3/5 in all planes to show imrpoved stability in order to allow for pt to return to typical active lifestyle without inc pain. 05/11improving LTG Duration 07/12/21 LEFS Impairment 54/80 Short Term Goal (STG) Pt will improve score to at least 65/80 to show improved functional ability. 05/11-n/t STG Duration 06/11/21 Alumni Relations Officer Goal (LTG) Pt will improve score to at least 75/80 to show improved functional ability. LTG Duration 07/12/21 Assessment Summary Assessment Pt is making good progress towards goals but has dec functional ability d/t R Knee bothering her more now. Start treatment of R knee at this time also. L knee is feeling good most of the time at this time. Pt encouraged to get referral for R Knee d/t likely benefiting from manual therapy. She wouldb enefit from cont PT to cont to wrork on returning to full activities without pain. Physical Therapy Plan Frequency and Duration Frequency of Treatment 1-2x/Week Duration of Treatment 2 months Plan of Care Start Date 05/20/21 Plan of Care End Date 07/21/21 Therapeutic Interventions Therapeutic Interventions Aquatic Therapy,Balance Training,Gait Training,Home Exercise Program,Joint Mobilizations,Manual Therapy, Neuromuscular Re-education, Patient/Caregiver Education, Self-Care/Home Management,Soft Tissue Mobilization,Taping, Therapeutic Activities, Therapeutic Exercises Modalities Cold Pack/Ice Massage,Electric Stimulation,Hot Packs, Infrared Therapy,Iontophoresis ,Ultrasound Next Visit Focus/Plan Next Note Type Treatment Note Next Visit Plan cont to work on R Knee stability & R mobility of knee , tape R knee as needed. cont to advance HEP for B knee strength
--- NOTE | 2021-05-20 09:04 | PT.OPPOC ---
Physical, Occupational & Speech Therapy At [facility] Current Diagnoses Pain in left knee (05/20/21) Unspecified abnormalities of gait and mobility (05/20/21) Abnormal posture (05/20/21) Weakness (05/20/21) Visit Care Team Role Provider Type Michell Snow MD Attending Provider Physician Primary Care Provider Referring Provider Specialty: [facility] Address: [address] [place] [address], [facility] [place], [address] Email: [email or web address] Plan Of Care PT-OP-T Assessment and Plan Start: 03/09/21 17:45 Freq: Status: Active Protocol: Document 05/20/21 08:23 [facility] (Rec: 05/20/21 09:03 [facility] [id number]) Physical Therapy Assessment Goals incline Short Term Goal (STG) Pt will be able to go up/down stairs without inc pain. 712- L knee no pain, R knee pain STG Duration 06/11/21 Cyber Legal Advisor Goal (LTG) Pt will be able to go up/down incline without inc knee pain. 05/11-L knee did well, R knee bothering her LTG Duration 07/21/21 balance Cyber Legal Advisor Goal (LTG) Pt will be able to do SLS B 30 sec w/arms at side w/o lat shift of pelvis or lat lean. 05/11-able to but has to move arms LTG Duration 07/12/21 activities Short Term Goal (STG) Pt will be able to use elliptical at gym for working out without inc pain. 05/11-has not tried STG Duration 06/11/21 Cyber Legal Advisor Goal (LTG) Pt will be able to run 20 min without inc knee pain. 05/11-Pt reports no R knee was catching a lot. 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 05/11improving LTG Duration 07/12/21 LEFS Impairment 54/80 Short Term Goal (STG) Pt will improve score to at least 65/80 to show improved functional ability. 05/11-n/t STG Duration 06/11/21 Cyber Legal Advisor Goal (LTG) Pt will improve score to at least 75/80 to show improved functional ability. LTG Duration 07/12/21 Assessment Summary Assessment Pt is making good progress towards goals but has dec functional ability d/t R Knee bothering her more now. Start treatment of R knee at this time also. L knee is feeling good most of the time at this time. Pt encouraged to get referral for R Knee d/t likely benefiting from manual therapy. She wouldb enefit from cont PT to cont to wrork on returning to full activities without pain. Physical Therapy Plan Frequency and Duration Frequency of Treatment 1-2x/Week Duration of Treatment 2 months Plan of Care Start Date 05/20/21 Plan of Care End Date 07/21/21 Therapeutic Interventions Therapeutic Interventions Aquatic Therapy,Balance Training,Gait Training,Home Exercise Program,Joint Mobilizations,Manual Therapy, Neuromuscular Re-education, Patient/Caregiver Education, Self-Care/Home Management,Soft Tissue Mobilization,Taping, Therapeutic Activities, Therapeutic Exercises Modalities Cold Pack/Ice Massage,Electric Stimulation,Hot Packs, Infrared Therapy,Iontophoresis ,Ultrasound Next Visit Focus/Plan Next Note Type Treatment Note Next Visit Plan cont to work on R Knee stability & R mobility of knee , tape R knee as needed. cont to advance HEP for B knee strength Plan of Care Dates Plan of Care Start Date 05/20/21 Plan of Care End Date 07/21/21 Electronically Signed by: Michell Nesbitt, PT 05/20/21 0904 Please Sign and Return: I have reviewed this Plan of Care and certify that the skilled therapy services above are required to meet the patient?s needs. Physician Signature Date Printed Name and Credentials Clinical Instructor Signature Printed Name and Credentials
--- NOTE | 2021-06-04 09:50 | PT.OTN ---
Current Diagnoses Pain in left knee (06/04/21) Unspecified abnormalities of gait and mobility (06/04/21) Abnormal posture (06/04/21) Weakness (06/04/21) Physical Therapy Treatment Note PT-OP-A Visit Information Start: 03/09/21 17:45 Freq: Status: Active Protocol: Document 06/04/21 08:23 [facility] (Rec: 06/04/21 09:50 [facility] [id number]) Out-Patient Physical Therapy Visit Information Visit Information Visit Type Treatment Note Visit Start Time 08:18 Visit Stop Time 09:00 Total Visit Minutes 42 Visit Number 12 Number of ICE GRINDER Visits 0 PT-OP-B Current Condition Start: 03/09/21 17:45 Freq: Status: Active Protocol: Document 05/20/21 08:23 [facility] (Rec: 05/20/21 09:03 [facility] [id number]) Current Condition History of Current Condition Onset Date this winter Current Complaints L knee pain History of Current Condition 05/20-Pt reprots R knee had been hurting for a while too but no known injury IE:Pt reports remembering climbing out the back of car and slammed knee into car this winter. 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 She improved form then that helped but then stopped and pain was worse and didn't resume. pt resumed going to the gym and it has been killing me. Tried to start light (did treadmill ( fast pace walking and working up running-has built up to 13 min) or elliptical (in the full range setting). It felt good when she was running but not after. Has not been to gym since xray 1.5 weeks ago. Does do stretching and arms also at gym typcially. Works remotely for a [employer] and sits w/1 knee bent and other leg over it and thinks that may be the main cause but pain does inc. She started new role w/company in Oct where se has to be in office d/t back to back calls. Pt cannot sleep on her side d/t pain. Has been sleeping supine /prone. Prior Treatments and Tests Xray-IMPRESSION: Mild lateral subluxation of the patella, which may indicate medial ligamentous laxity but there also is note made of a relatively shallow trochlear groove which does predispose to lateral subluxation. PT-OP-C Subjective Start: 03/09/21 17:45 Freq: Status: Active Protocol: Document 06/04/21 08:23 [facility] (Rec: 06/04/21 09:50 [facility] [id number]) OP-PT Subjective Patient Comments Patient Comments Pt reprots taping helpd. Notes knees are doing better. She will be at a conference for 3 days next week and concerned about standing extended Patient Reported Progress Improving PT-OP-D Balance Start: 03/09/21 17:45 Freq: Status: Active Protocol: Document 05/20/21 08:23 [facility] (Rec: 05/20/21 09:03 [facility] [id number]) Balance Tests Single Limb Standing Single Limb- Right 21 w/occ UE use and lat shear of hip Single Limb- Left >30 sec w/occ UE use and lat shear of hip PT-OP-F Manual Assessment Start: 03/09/21 17:45 Freq: Status: Active Protocol: Document 03/10/21 14:26 [facility] (Rec: 03/10/21 15:18 [facility] [id number]) Manual Assessments Soft Tissue Assessment Soft Tissue Mobility Assessment tightness HS, ITB, adductors, calf Joint Mobility Assessment Joint Mobility Assessment rearfoot valgus B, IR femurs & tibias B PT-OP-G Mobility & Gait Start: 03/09/21 17:45 Freq: Status: Active Protocol: Document 03/10/21 14:26 [facility] (Rec: 03/10/21 15:18 [facility] [id number]) OP Gait Assessment Comments Gait Comments Toes turned in, lat shear of hips w/WB, dec push off, inc LUE arm swing PT-OP-J Posture/Palpation/Skin Start: 03/09/21 17:45 Freq: Status: Active Protocol: Document 05/11/21 14:39 [facility] (Rec: 05/11/21 15:22 [facility] [id number]) Posture Evaluation [facility] Postural Classification System Lumbar Protective Mechanism Left AP 2 Lumbar Protective Mechanism Right AP 0 Lumbar Protective Mechanism Left PA 2 Lumbar Protective Mechanism Right PA 2 PT-OP-K Range of Motion Start: 03/09/21 17:45 Freq: Status: Active Protocol: Document 05/20/21 08:23 [facility] (Rec: 05/20/21 09:03 [facility] [id number]) Knee Goniometric Range of Motion Knee Right Flexion Active (degrees) 133 Extension Active (degrees) 2 Comments pain w/ext Left Flexion Active (degrees) 130 Extension Active (degrees) 0 PT-OP-L Special Tests Start: 03/09/21 17:45 Freq: Status: Active Protocol: Document 05/20/21 08:23 [facility] (Rec: 05/20/21 09:03 [facility] [id number]) Special Tests Knee Special Tests Straight Leg Raise Test Results 79 deg B Steve's Test Test Results positve B Abbe Test Results mild tightness in quads R>L Varus- 25 Degrees Test Results neg B Vaughan's Compression Test Results positve B Thessaly Test 5 Degrees Test Results neg B Valgus- 25 Degrees Test Results neg Posterior Draw Test Results neg Cochran Chondromalacia Test Results does not change pain w/med glide R Corrie Test Test Results neg B Jie's Test Results neg B PT-OP-M Strength Start: 03/09/21 17:45 Freq: Status: Active Protocol: Document 05/11/21 14:39 [facility] (Rec: 05/11/21 15:22 [facility] [id number]) Hip Strength Hip Manual Muscle Testing Right Flexion (L2) 4 Good Extension (S1) 4+ Good+ Abduction 4+ Good+ Adduction 4 Good External Rotation 4+ Good+ Internal Rotation 5 Normal Left Flexion (L2) 4 Good Extension (S1) 4+ Good+ Abduction 4+ Good+ Adduction 4+ Good+ External Rotation 4+ Good+ Internal Rotation 5 Normal Knee Strength Knee Manual Muscle Testing Right Flexion (S2) 5 Normal Extension (L3) 5 Normal Left Flexion (S2) 5 Normal Extension (L3) 5 Normal Comments pain w/ext Ankle/Foot Strength Ankle and Foot Manual Muscle Testing Right Dorsiflexion (L4) 5 Normal Plantarflexion (S1) 5 Normal Inversion 5 Normal Eversion (S1) 5 Normal Comments 20 heel raises Left Dorsiflexion (L4) 5 Normal Plantarflexion (S1) 5 Normal Inversion 5 Normal Eversion (S1) 5 Normal PT-OP-Q Treatments Start: 03/09/21 17:45 Freq: Status: Active Protocol: Document 06/04/21 08:23 [facility] (Rec: 06/04/21 09:50 [facility] [id number]) Cardio Equipment Elliptical Duration (Minutes) 5 Resistance 4 Therapeutic Exercises Standing Exercises stretches Standing Exercise Name 1. HS 2. bottoms up 3. quad stretch 3. hip flexor/calf stretch Side bilateral Manual Therapy Treatment Soft Tissue Mobilization quad Body Location R lat Mobilization Type Rolling,Strumming Intensity/Depth Moderate Joint Mobilizations tib fem Joint IR tib FM Taping knee Body Location R Treatment Focus med glide of patella Type of Tape Kinesio Tape Comments 1 Y on quad , upside down Y starting at inf tib tub, 1 Y med for med glide facilitation Neuro Re-Education Treatment Balance Activities bosu Comments 1. blue side mini squat x10 2. step up x10 B 3. mini lunge onto bosu x10 B 4. SLS B trials PT-OP-T Assessment and Plan Start: 03/09/21 17:45 Freq: Status: Active Protocol: Document 06/04/21 08:23 [facility] (Rec: 06/04/21 09:50 [facility] [id number]) Physical Therapy Assessment Goals incline Short Term Goal (STG) Pt will be able to go up/down stairs without inc pain. 712- L knee no pain, R knee pain STG Duration 06/11/21 Intermediate Goal (LTG) Pt will be able to go up/down incline without inc knee pain. 05/11-L knee did well, R knee bothering her LTG Duration 07/21/21 balance Intermediate Goal (LTG) Pt will be able to do SLS B 30 sec w/arms at side w/o lat shift of pelvis or lat lean. 05/11-able to but has to move arms LTG Duration 07/12/21 activities Short Term Goal (STG) Pt will be able to use elliptical at gym for working out without inc pain. 05/11-has not tried STG Duration 06/11/21 Floor Director Goal (LTG) Pt will be able to run 20 min without inc knee pain. 05/11-Pt reports no R knee was catching a lot. 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 05/11improving LTG Duration 07/12/21 LEFS Impairment 54/80 Short Term Goal (STG) Pt will improve score to at least 65/80 to show improved functional ability. 05/11-n/t STG Duration 06/11/21 Floor Director Goal (LTG) Pt will improve score to at least 75/80 to show improved functional ability. LTG Duration 07/12/21 Assessment Summary Assessment Pt tolerated elliptical well without pain. Educated on things to watch for when using ellipitcal on her own. Able to do more advance exercises on bosu well. Required cues for knees with lunge. Physical Therapy Plan Frequency and Duration Frequency of Treatment 1-2x/Week Duration of Treatment 2 months Plan of Care Start Date 05/20/21 Plan of Care End Date 07/21/21 Next Visit Focus/Plan Next Note Type Treatment Note Next Visit Plan cont to work on R Knee stability & R mobility of knee , tape R knee as needed. cont to advance HEP for B knee strength
--- NOTE | 2021-06-16 11:17 | PT.OTN ---
Current Diagnoses Pain in left knee (06/16/21) Unspecified abnormalities of gait and mobility (06/16/21) Abnormal posture (06/16/21) Weakness (06/16/21) Physical Therapy Treatment Note PT-OP-A Visit Information Start: 03/09/21 17:45 Freq: Status: Active Protocol: Document 06/16/21 10:37 [facility] (Rec: 06/16/21 11:16 [facility] [id number]) Out-Patient Physical Therapy Visit Information Visit Information Visit Type Treatment Note Visit Start Time 10:34 Visit Stop Time 11:14 Total Visit Minutes 40 Visit Number 13 Number of RENEWALS REPRESENTATIVE Visits 0 PT-OP-B Current Condition Start: 03/09/21 17:45 Freq: Status: Active Protocol: Document 05/20/21 08:23 [facility] (Rec: 05/20/21 09:03 [facility] [id number]) Current Condition History of Current Condition Onset Date this winter Current Complaints L knee pain History of Current Condition 05/20-Pt reprots R knee had been hurting for a while too but no known injury IE:Pt reports remembering climbing out the back of car and slammed knee into car this winter. She was seeing a virtual personal financial representative this winter and was doing jump squats and did bad form and hurt a lot. She improved form then that helped but then stopped and pain was worse and didn't resume. pt resumed going to the gym and it has been killing me. Tried to start light (did treadmill ( fast pace walking and working up running-has built up to 13 min) or elliptical (in the full range setting). It felt good when she was running but not after. Has not been to gym since xray 1.5 weeks ago. Does do stretching and arms also at gym typcially. 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 She started new role w/company in Oct where se has to be in office d/t back to back calls. Pt cannot sleep on her side d/t pain. Has been sleeping supine /prone. Prior Treatments and Tests Xray-IMPRESSION: Mild lateral subluxation of the patella, which may indicate medial ligamentous laxity but there also is note made of a relatively shallow trochlear groove which does predispose to lateral subluxation. PT-OP-C Subjective Start: 03/09/21 17:45 Freq: Status: Active Protocol: Document 06/16/21 10:37 [facility] (Rec: 06/16/21 11:16 [facility] [id number]) OP-PT Subjective Patient Comments Patient Comments Pt reports knees did well at conference with the standing. She did stretch. She still is bothered in R knee a little with exercises like squats and lunges. Pt had to do a ton of walking and knees did okay with that. She did use an elliptical for 15 min one day but no others d/t blisters after wearing heels. no inc knee pain from heels Patient Reported Progress Improving PT-OP-D Balance Start: 03/09/21 17:45 Freq: Status: Active Protocol: Document 05/20/21 08:23 [facility] (Rec: 05/20/21 09:03 [facility] [id number]) Balance Tests Single Limb Standing Single Limb- Right 21 w/occ UE use and lat shear of hip Single Limb- Left >30 sec w/occ UE use and lat shear of hip PT-OP-F Manual Assessment Start: 03/09/21 17:45 Freq: Status: Active Protocol: Document 03/10/21 14:26 [facility] (Rec: 03/10/21 15:18 [facility] [id number]) Manual Assessments Soft Tissue Assessment Soft Tissue Mobility Assessment tightness HS, ITB, adductors, calf Joint Mobility Assessment Joint Mobility Assessment rearfoot valgus B, IR femurs & tibias B PT-OP-G Mobility & Gait Start: 03/09/21 17:45 Freq: Status: Active Protocol: Document 03/10/21 14:26 [facility] (Rec: 03/10/21 15:18 [facility] [id number]) OP Gait Assessment Comments Gait Comments Toes turned in, lat shear of hips w/WB, dec push off, inc LUE arm swing PT-OP-J Posture/Palpation/Skin Start: 03/09/21 17:45 Freq: Status: Active Protocol: Document 05/11/21 14:39 [facility] (Rec: 05/11/21 15:22 [facility] [id number]) Posture Evaluation Yris Postural Classification System Lumbar Protective Mechanism Left AP 2 Lumbar Protective Mechanism Right AP 0 Lumbar Protective Mechanism Left PA 2 Lumbar Protective Mechanism Right PA 2 PT-OP-K Range of Motion Start: 03/09/21 17:45 Freq: Status: Active Protocol: Document 05/20/21 08:23 [facility] (Rec: 05/20/21 09:03 [facility] [id number]) Knee Goniometric Range of Motion Knee Right Flexion Active (degrees) 133 Extension Active (degrees) 2 Comments pain w/ext Left Flexion Active (degrees) 130 Extension Active (degrees) 0 PT-OP-L Special Tests Start: 03/09/21 17:45 Freq: Status: Active Protocol: Document 05/20/21 08:23 [facility] (Rec: 05/20/21 09:03 [facility] [id number]) Special Tests Knee Special Tests Straight Leg Raise Test Results 79 deg B Steve's Test Test Results positve B Abbe Test Results mild tightness in quads R>L Varus- 25 Degrees Test Results neg B Vaughan's Compression Test Results positve B Thessaly Test 5 Degrees Test Results neg B Valgus- 25 Degrees Test Results neg Posterior Draw Test Results neg Cochran Chondromalacia Test Results does not change pain w/med glide R Corrie Test Test Results neg B Jie's Test Results neg B PT-OP-M Strength Start: 03/09/21 17:45 Freq: Status: Active Protocol: Document 05/11/21 14:39 [facility] (Rec: 05/11/21 15:22 [facility] [id number]) Hip Strength Hip Manual Muscle Testing Right Flexion (L2) 4 Good Extension (S1) 4+ Good+ Abduction 4+ Good+ Adduction 4 Good External Rotation 4+ Good+ Internal Rotation 5 Normal Left Flexion (L2) 4 Good Extension (S1) 4+ Good+ Abduction 4+ Good+ Adduction 4+ Good+ External Rotation 4+ Good+ Internal Rotation 5 Normal Knee Strength Knee Manual Muscle Testing Right Flexion (S2) 5 Normal Extension (L3) 5 Normal Left Flexion (S2) 5 Normal Extension (L3) 5 Normal Comments pain w/ext Ankle/Foot Strength Ankle and Foot Manual Muscle Testing Right Dorsiflexion (L4) 5 Normal Plantarflexion (S1) 5 Normal Inversion 5 Normal Eversion (S1) 5 Normal Comments 20 heel raises Left Dorsiflexion (L4) 5 Normal Plantarflexion (S1) 5 Normal Inversion 5 Normal Eversion (S1) 5 Normal PT-OP-Q Treatments Start: 03/09/21 17:45 Freq: Status: Active Protocol: Document 06/16/21 10:37 [facility] (Rec: 06/16/21 11:16 [facility] [id number]) Cardio Equipment Elliptical Duration (Minutes) 5 Resistance 6 Manual Therapy Treatment Soft Tissue Mobilization ITB Body Location R Mobilization Type Rolling Intensity/Depth Moderate calf Body Location R Mobilization Type Rolling Intensity/Depth Moderate HS Body Location R HS Mobilization Type Rolling,Strumming Intensity/Depth Moderate Joint Mobilizations tib fem Joint PA FM Taping knee Body Location R Treatment Focus med glide of patella Type of Tape Kinesio Tape Comments 1 Y on quad , upside down Y starting at inf tib tub, 1 Y med for med glide facilitation Neuro Re-Education Treatment Balance Activities bosu Comments 1. blue side mini squat x10 2. step up 2x8 B 3. mini lunge onto bosu x4 B- stop d/t r knee pain 4. SLS B trials PT-OP-T Assessment and Plan Start: 03/09/21 17:45 Freq: Status: Active Protocol: Document 06/16/21 10:37 [facility] (Rec: 06/16/21 11:16 [facility] [id number]) Physical Therapy Assessment Goals incline Short Term Goal (STG) Pt will be able to go up/down stairs without inc pain. 712- L knee no pain, R knee pain STG Duration 06/11/21 Alf Goal (LTG) Pt will be able to go up/down incline without inc knee pain. 05/11-L knee did well, R knee bothering her LTG Duration 07/21/21 balance Supervisor Fabrication Department Goal (LTG) Pt will be able to do SLS B 30 sec w/arms at side w/o lat shift of pelvis or lat lean. 05/11-able to but has to move arms LTG Duration 07/12/21 activities Short Term Goal (STG) Pt will be able to use elliptical at gym for working out without inc pain. 05/11-has not tried STG Duration 06/11/21 Supervisor Fabrication Department Goal (LTG) Pt will be able to run 20 min without inc knee pain. 05/11-Pt reports no R knee was catching a lot. Notes she chased kids only, but no extended run LTG Duration 07/12/21 strength Short Term Goal (STG) pt will be indep w/HEP STG Duration achieved Alf Goal (LTG) Pt will improve LE strength to at least 5/5 and LPM to at least 3/5 in all planes to show imrpoved stability in order to allow for pt to return to typical active lifestyle without inc pain. 05/11improving LTG Duration 07/12/21 LEFS Impairment 54/80 Short Term Goal (STG) Pt will improve score to at least 65/80 to show improved functional ability. 05/11-n/t STG Duration 06/11/21 Alf Goal (LTG) Pt will improve score to at least 75/80 to show improved functional ability. LTG Duration 07/12/21 Assessment Summary Assessment Pt tolerated all bosu exercises except lunge w/ R Knee so stopped. Pt had more difficulty w/alignment with lunge so may n eed to try on ground next time. She is improving funcitonally but R knee still does give her trouble w/higher level activity like squatting. Dec knee pain w/passive fle of R Knee after manual treatment Physical Therapy Plan Frequency and Duration Frequency of Treatment 1-2x/Week Duration of Treatment 2 months Plan of Care Start Date 05/20/21 Plan of Care End Date 07/21/21 Next Visit Focus/Plan Next Note Type Treatment Note Next Visit Plan cont to work on R Knee stability & R mobility of knee , tape R knee as needed. cont to advance HEP for B knee strength
--- NOTE | 2021-06-30 11:16 | PT.OTN ---
Current Diagnoses Pain in left knee (06/30/21) Unspecified abnormalities of gait and mobility (06/30/21) Abnormal posture (06/30/21) Weakness (06/30/21) Physical Therapy Treatment Note PT-OP-A Visit Information Start: 03/09/21 17:45 Freq: Status: Active Protocol: Document 06/30/21 10:06 [facility] (Rec: 06/30/21 11:15 [facility] [id number]) Out-Patient Physical Therapy Visit Information Visit Information Visit Type Treatment Note Visit Start Time 10:33 Visit Stop Time 11:12 Total Visit Minutes 39 Visit Number 14 Number of BREEDER HEN SERVICE TECHNICIAN Visits 0 PT-OP-B Current Condition Start: 03/09/21 17:45 Freq: Status: Active Protocol: Document 05/20/21 08:23 [facility] (Rec: 05/20/21 09:03 [facility] [id number]) Current Condition History of Current Condition Onset Date this winter Current Complaints L knee pain History of Current Condition 05/20-Pt reprots R knee had been hurting for a while too but no known injury IE:Pt reports remembering climbing out the back of car and slammed knee into car this winter. She was seeing a virtual personal injury legal assistant this winter and was doing jump squats and did bad form and hurt a lot. She improved form then that helped but then stopped and pain was worse and didn't resume. pt resumed going to the gym and it has been killing me. Tried to start light (did treadmill ( fast pace walking and working up running-has built up to 13 min) or elliptical (in the full range setting). It felt good when she was running but not after. Has not been to gym since xray 1.5 weeks ago. Does do stretching and arms also at gym typcially. Works remotely for a [employer] and sits w/1 knee bent and other leg over it and thinks that may be the main cause but pain does inc. She started new role w/company in Oct where se has to be in office d/t back to back calls. Pt cannot sleep on her side d/t pain. Has been sleeping supine /prone. Prior Treatments and Tests Xray-IMPRESSION: Mild lateral subluxation of the patella, which may indicate medial ligamentous laxity but there also is note made of a relatively shallow trochlear groove which does predispose to lateral subluxation. PT-OP-C Subjective Start: 03/09/21 17:45 Freq: Status: Active Protocol: Document 06/30/21 10:06 [facility] (Rec: 06/30/21 11:15 [facility] [id number]) OP-PT Subjective Patient Comments Patient Comments Pt reports her kids and her were sick last week. She has been very crazy so she hasn't done much exercise in general. PT-OP-D Balance Start: 03/09/21 17:45 Freq: Status: Active Protocol: Document 05/20/21 08:23 [facility] (Rec: 05/20/21 09:03 [facility] [id number]) Balance Tests Single Limb Standing Single Limb- Right 21 w/occ UE use and lat shear of hip Single Limb- Left >30 sec w/occ UE use and lat shear of hip PT-OP-F Manual Assessment Start: 03/09/21 17:45 Freq: Status: Active Protocol: Document 03/10/21 14:26 [facility] (Rec: 03/10/21 15:18 [facility] [id number]) Manual Assessments Soft Tissue Assessment Soft Tissue Mobility Assessment tightness HS, ITB, adductors, calf Joint Mobility Assessment Joint Mobility Assessment rearfoot valgus B, IR femurs & tibias B PT-OP-G Mobility & Gait Start: 03/09/21 17:45 Freq: Status: Active Protocol: Document 03/10/21 14:26 [facility] (Rec: 03/10/21 15:18 [facility] [id number]) OP Gait Assessment Comments Gait Comments Toes turned in, lat shear of hips w/WB, dec push off, inc LUE arm swing PT-OP-J Posture/Palpation/Skin Start: 03/09/21 17:45 Freq: Status: Active Protocol: Document 05/11/21 14:39 [facility] (Rec: 05/11/21 15:22 [facility] [id number]) Posture Evaluation Yris Postural Classification System Lumbar Protective Mechanism Left AP 2 Lumbar Protective Mechanism Right AP 0 Lumbar Protective Mechanism Left PA 2 Lumbar Protective Mechanism Right PA 2 PT-OP-K Range of Motion Start: 03/09/21 17:45 Freq: Status: Active Protocol: Document 05/20/21 08:23 [facility] (Rec: 05/20/21 09:03 [facility] [id number]) Knee Goniometric Range of Motion Knee Right Flexion Active (degrees) 133 Extension Active (degrees) 2 Comments pain w/ext Left Flexion Active (degrees) 130 Extension Active (degrees) 0 PT-OP-L Special Tests Start: 03/09/21 17:45 Freq: Status: Active Protocol: Document 05/20/21 08:23 [facility] (Rec: 05/20/21 09:03 [facility] [id number]) Special Tests Knee Special Tests Straight Leg Raise Test Results 79 deg B Steve's Test Test Results positve B Abbe Test Results mild tightness in quads R>L Varus- 25 Degrees Test Results neg B Vaughan's Compression Test Results positve B Thessaly Test 5 Degrees Test Results neg B Valgus- 25 Degrees Test Results neg Posterior Draw Test Results neg Cochran Chondromalacia Test Results does not change pain w/med glide R Corrie Test Test Results neg B Jie's Test Results neg B PT-OP-M Strength Start: 03/09/21 17:45 Freq: Status: Active Protocol: Document 05/11/21 14:39 [facility] (Rec: 05/11/21 15:22 [facility] [id number]) Hip Strength Hip Manual Muscle Testing Right Flexion (L2) 4 Good Extension (S1) 4+ Good+ Abduction 4+ Good+ Adduction 4 Good External Rotation 4+ Good+ Internal Rotation 5 Normal Left Flexion (L2) 4 Good Extension (S1) 4+ Good+ Abduction 4+ Good+ Adduction 4+ Good+ External Rotation 4+ Good+ Internal Rotation 5 Normal Knee Strength Knee Manual Muscle Testing Right Flexion (S2) 5 Normal Extension (L3) 5 Normal Left Flexion (S2) 5 Normal Extension (L3) 5 Normal Comments pain w/ext Ankle/Foot Strength Ankle and Foot Manual Muscle Testing Right Dorsiflexion (L4) 5 Normal Plantarflexion (S1) 5 Normal Inversion 5 Normal Eversion (S1) 5 Normal Comments 20 heel raises Left Dorsiflexion (L4) 5 Normal Plantarflexion (S1) 5 Normal Inversion 5 Normal Eversion (S1) 5 Normal PT-OP-Q Treatments Start: 03/09/21 17:45 Freq: Status: Active Protocol: Document 06/30/21 10:06 [facility] (Rec: 06/30/21 11:15 [facility] [id number]) Cardio Equipment Elliptical Duration (Minutes) 5 Resistance 8 Therapeutic Exercises Prone Exercises hip ext Prone Exercise Name alt Side bilateral Reps/Minutes 10 Comments verbal cues for glute recruitment Sidelying Exercises abd Sidelying Exercise Name hip Side bilateral Reps/Minutes x10 ER Sidelying Exercise Name clamshells Side bilateral Equipment Used L1 Reps/Minutes x10 Standing Exercises SLS Standing Exercise Name trials B in mirror no focus on lat lean hip hike Side bilateral Equipment Used 4 in step and rail Reps/Minutes 15 ea side step Standing Exercise Name in mini squat Side bilateral Equipment Used L3 tband Reps/Minutes 20ftx2 1 Standing Exercise Name lunges Side bilateral Reps/Minutes 12 Comments mirror to avoid pelvis twist & work on knee position Manual Therapy Treatment Soft Tissue Mobilization ITB Body Location R Mobilization Type Rolling Intensity/Depth Moderate quad Body Location R lat Mobilization Type Rolling,Strumming Intensity/Depth Moderate Taping knee Body Location R Treatment Focus med glide of patella Type of Tape Kinesio Tape Comments 1 Y on quad , upside down Y starting at inf tib tub, 1 Y med for med glide facilitation PT-OP-T Assessment and Plan Start: 03/09/21 17:45 Freq: Status: Active Protocol: Document 06/30/21 10:06 [facility] (Rec: 06/30/21 11:15 [facility] [id number]) Physical Therapy Assessment Goals incline Short Term Goal (STG) Pt will be able to go up/down stairs without inc pain. 712- L knee no pain, R knee pain STG Duration 06/11/21 Customs Inspector Goal (LTG) Pt will be able to go up/down incline without inc knee pain. 05/11-L knee did well, R knee bothering her LTG Duration 07/21/21 balance Fpc Goal (LTG) Pt will be able to do SLS B 30 sec w/arms at side w/o lat shift of pelvis or lat lean. 05/11-able to but has to move arms LTG Duration 07/12/21 activities Short Term Goal (STG) Pt will be able to use elliptical at gym for working out without inc pain. 05/11-has not tried STG Duration 06/11/21 Customs Inspector Goal (LTG) Pt will be able to run 20 min without inc knee pain. 05/11-Pt reports no R knee was catching a lot. 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 05/11improving LTG Duration 07/12/21 LEFS Impairment 54/80 Short Term Goal (STG) Pt will improve score to at least 65/80 to show improved functional ability. 05/11-n/t STG Duration 06/11/21 Customs Inspector Goal (LTG) Pt will improve score to at least 75/80 to show improved functional ability. LTG Duration 07/12/21 Assessment Summary Assessment pt requires some cues with her exercises for home still especially hip hike and s/l exercies but was able to tolerated Lvl 1 band w/ clmashells. Needs cues w/ exercises occ for slower controlled motions. Physical Therapy Plan Frequency and Duration Frequency of Treatment 1-2x/Week Duration of Treatment 2 months Plan of Care Start Date 05/20/21 Plan of Care End Date 07/21/21 Next Visit Focus/Plan Next Note Type Treatment Note Next Visit Plan cont to work on R Knee stability & R mobility of knee , tape R knee as needed. cont to advance HEP for B knee strength
--- NOTE | 2021-07-09 11:52 | PT.OTN ---
Current Diagnoses Pain in left knee (07/09/21) Unspecified abnormalities of gait and mobility (07/09/21) Abnormal posture (07/09/21) Weakness (07/09/21) Physical Therapy Treatment Note PT-OP-A Visit Information Start: 03/09/21 17:45 Freq: Status: Active Protocol: Document 07/09/21 10:51 [facility] (Rec: 07/09/21 11:51 [facility] [id number]) Out-Patient Physical Therapy Visit Information Visit Information Visit Type Progress Note Visit Start Time 10:30 Visit Stop Time 11:15 Total Visit Minutes 45 Visit Number 15 Number of DENTAL ASSISTANT INSTRUCTOR Visits 0 PT-OP-B Current Condition Start: 03/09/21 17:45 Freq: Status: Active Protocol: Document 05/20/21 08:23 [facility] (Rec: 05/20/21 09:03 [facility] [id number]) Current Condition History of Current Condition Onset Date this winter Current Complaints L knee pain History of Current Condition 05/20-Pt reprots R knee had been hurting for a while too but no known injury IE:Pt reports remembering climbing out the back of car and slammed knee into car this winter. She was seeing a virtual physical trainer this winter and was doing jump squats and did bad form and hurt a lot. She improved form then that helped but then stopped and pain was worse and didn't resume. pt resumed going to the gym and it has been killing me. Tried to start light (did treadmill ( fast pace walking and working up running-has built up to 13 min) or elliptical (in the full range setting). It felt good when she was running but not after. Has not been to gym since xray 1.5 weeks ago. Does do stretching and arms also at gym typcially. Works remotely for a [employer] and sits w/1 knee bent and other leg over it and thinks that may be the main cause but pain does inc. She started new role w/company in Oct where se has to be in office d/t back to back calls. Pt cannot sleep on her side d/t pain. Has been sleeping supine /prone. Prior Treatments and Tests Xray-IMPRESSION: Mild lateral subluxation of the patella, which may indicate medial ligamentous laxity but there also is note made of a relatively shallow trochlear groove which does predispose to lateral subluxation. PT-OP-C Subjective Start: 03/09/21 17:45 Freq: Status: Active Protocol: Document 07/09/21 10:51 [facility] (Rec: 07/09/21 11:51 [facility] [id number]) OP-PT Subjective Patient Comments Patient Comments Pt reports some lat knee pain today PT-OP-D Balance Start: 03/09/21 17:45 Freq: Status: Active Protocol: Document 05/20/21 08:23 [facility] (Rec: 05/20/21 09:03 [facility] [id number]) Balance Tests Single Limb Standing Single Limb- Right 21 w/occ UE use and lat shear of hip Single Limb- Left >30 sec w/occ UE use and lat shear of hip PT-OP-F Manual Assessment Start: 03/09/21 17:45 Freq: Status: Active Protocol: Document 03/10/21 14:26 [facility] (Rec: 03/10/21 15:18 [facility] [id number]) Manual Assessments Soft Tissue Assessment Soft Tissue Mobility Assessment tightness HS, ITB, adductors, calf Joint Mobility Assessment Joint Mobility Assessment rearfoot valgus B, IR femurs & tibias B PT-OP-G Mobility & Gait Start: 03/09/21 17:45 Freq: Status: Active Protocol: Document 03/10/21 14:26 [facility] (Rec: 03/10/21 15:18 [facility] [id number]) OP Gait Assessment Comments Gait Comments Toes turned in, lat shear of hips w/WB, dec push off, inc LUE arm swing PT-OP-J Posture/Palpation/Skin Start: 03/09/21 17:45 Freq: Status: Active Protocol: Document 07/09/21 10:51 [facility] (Rec: 07/09/21 11:51 [facility] [id number]) Posture Evaluation Yris Postural Classification System Lumbar Protective Mechanism Left AP 3 Lumbar Protective Mechanism Right AP 3 Lumbar Protective Mechanism Left PA 3 Lumbar Protective Mechanism Right PA 3 PT-OP-K Range of Motion Start: 03/09/21 17:45 Freq: Status: Active Protocol: Document 05/20/21 08:23 [facility] (Rec: 05/20/21 09:03 [facility] [id number]) Knee Goniometric Range of Motion Knee Right Flexion Active (degrees) 133 Extension Active (degrees) 2 Comments pain w/ext Left Flexion Active (degrees) 130 Extension Active (degrees) 0 PT-OP-L Special Tests Start: 03/09/21 17:45 Freq: Status: Active Protocol: Document 05/20/21 08:23 [facility] (Rec: 05/20/21 09:03 [facility] [id number]) Special Tests Knee Special Tests Straight Leg Raise Test Results 79 deg B Steve's Test Test Results positve B Abbe Test Results mild tightness in quads R>L Varus- 25 Degrees Test Results neg B Vaughan's Compression Test Results positve B Thessaly Test 5 Degrees Test Results neg B Valgus- 25 Degrees Test Results neg Posterior Draw Test Results neg Cochran Chondromalacia Test Results does not change pain w/med glide R Corrie Test Test Results neg B Jie's Test Results neg B PT-OP-M Strength Start: 03/09/21 17:45 Freq: Status: Active Protocol: Document 07/09/21 10:51 [facility] (Rec: 07/09/21 11:51 [facility] [id number]) Hip Strength Hip Manual Muscle Testing Right Flexion (L2) 5 Normal Extension (S1) 5 Normal Abduction 5 Normal Adduction 5 Normal External Rotation 5 Normal Internal Rotation 5 Normal Left Flexion (L2) 5 Normal Extension (S1) 5 Normal Abduction 5 Normal Adduction 5 Normal External Rotation 5 Normal Internal Rotation 5 Normal Knee Strength Knee Manual Muscle Testing Right Flexion (S2) 5 Normal Extension (L3) 5 Normal Left Flexion (S2) 5 Normal Extension (L3) 5 Normal Ankle/Foot Strength Ankle and Foot Manual Muscle Testing Right Dorsiflexion (L4) 5 Normal Plantarflexion (S1) 5 Normal Inversion 5 Normal Eversion (S1) 5 Normal Comments 20 heel raises Left Dorsiflexion (L4) 5 Normal Plantarflexion (S1) 5 Normal Inversion 5 Normal Eversion (S1) 5 Normal PT-OP-Q Treatments Start: 03/09/21 17:45 Freq: Status: Active Protocol: Document 07/09/21 10:51 [facility] (Rec: 07/09/21 11:51 [facility] [id number]) Cardio Equipment Elliptical Duration (Minutes) 6 Resistance 8 Therapeutic Exercises Standing Exercises side step Standing Exercise Name in mini squat Side bilateral Equipment Used L3 tband Reps/Minutes 5ft x6 Manual Therapy Treatment Soft Tissue Mobilization ITB Body Location B Mobilization Type Rolling Intensity/Depth Moderate Body Position Hooklying Comments w/gentle hip ER/IR Self-Care/Home Management Treatment Education Other Education edu on how to roll out w/foam roll especialy for ITB and importance of roll out w/ rolling pin if foam roll too much, edu on improtance of desk set up and set up in good knee and hip posiiton on chair to demo good poisiton and greater ease w/transitions in/out of sitting w/that position, edu w/ moving legs w /knee flex/ext during desk time PT-OP-T Assessment and Plan Start: 03/09/21 17:45 Freq: Status: Active Protocol: Document 07/09/21 10:51 [facility] (Rec: 07/09/21 11:51 [facility] [id number]) Physical Therapy Assessment Goals incline Short Term Goal (STG) Pt will be able to go up/down stairs without inc pain. 712- L knee no pain, R knee pain 07/09-no issues if focusing on form STG Duration 08/08 Snf Goal (LTG) Pt will be able to go up/down incline without inc knee pain. 05/11-L knee did well, R knee bothering her 07/09-still painful but hasnt dont it since vacation a while ago LTG Duration 09/08/21 balance Lapeler Goal (LTG) Pt will be able to do SLS B 30 sec w/arms at side w/o lat shift of pelvis or lat lean. 05/11-able to but has to move arms 07/09-20 sec R, 25 sec L LTG Duration 09/08 activities Short Term Goal (STG) Pt will be able to use elliptical at gym for working out without inc pain. 05/11-has not tried STG Duration achieved Snf Goal (LTG) Pt will be able to run 20 min without inc knee pain. 05/11-Pt reports no R knee was catching a lot. 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 05/11improving LTG Duration achieved LEFS Impairment 54/80 Short Term Goal (STG) Pt will improve score to at least 65/80 to show improved functional ability. 05/11-n/t 07/09-64/80 STG Duration 08/08/21 Lapeler Goal (LTG) Pt will improve score to at least 75/80 to show improved functional ability. LTG Duration 09/08/21 Assessment Summary Assessment Pt has progressed signficiantly with strength and mobility and is back to being able to work out 20 min on elliptical but has not run yet. Worked on running form today w/significant cueing needed. She has tight ITB and is encouraged to roll out. Edu not to start running for long periods but jog walk. She did well with sidesteps w/min cues. Physical Therapy Plan Frequency and Duration Frequency of Treatment as needed Duration of Treatment 2 months Plan of Care Start Date 07/09/21 Plan of Care End Date 09/08/21 Therapeutic Interventions Therapeutic Interventions Aquatic Therapy,Balance Training,Gait Training,Home Exercise Program,Joint Mobilizations,Manual Therapy, Neuromuscular Re-education, Patient/Caregiver Education, Self-Care/Home Management,Soft Tissue Mobilization,Taping, Therapeutic Activities, Therapeutic Exercises Modalities Cold Pack/Ice Massage,Electric Stimulation,Hot Packs, Infrared Therapy,Iontophoresis ,Ultrasound Next Visit Focus/Plan Next Note Type Treatment Note Next Visit Plan review HEP as needed and DC if pt ready
--- NOTE | 2021-07-09 11:53 | PT.OPPOC ---
Physical, Occupational & Speech Therapy At [facility] Current Diagnoses Pain in left knee (07/09/21) Unspecified abnormalities of gait and mobility (07/09/21) Abnormal posture (07/09/21) Weakness (07/09/21) Visit Care Team Role Provider Type Michell Snow MD Attending Provider Physician Primary Care Provider Referring Provider Specialty: [facility] Address: [address] [place] [address], [facility] [place], [address] Email: [email or web address] Plan Of Care PT-OP-T Assessment and Plan Start: 03/09/21 17:45 Freq: Status: Active Protocol: Document 07/09/21 10:51 [facility] (Rec: 07/09/21 11:51 [facility] [id number]) Physical Therapy Assessment Goals incline Short Term Goal (STG) Pt will be able to go up/down stairs without inc pain. 712- L knee no pain, R knee pain 07/09-no issues if focusing on form STG Duration 08/08 Public Relations Intern Goal (LTG) Pt will be able to go up/down incline without inc knee pain. 05/11-L knee did well, R knee bothering her 07/09-still painful but hasnt dont it since vacation a while ago LTG Duration 09/08/21 balance Public Relations Intern Goal (LTG) Pt will be able to do SLS B 30 sec w/arms at side w/o lat shift of pelvis or lat lean. 05/11-able to but has to move arms 07/09-20 sec R, 25 sec L LTG Duration 09/08 activities Short Term Goal (STG) Pt will be able to use elliptical at gym for working out without inc pain. 05/11-has not tried STG Duration achieved Public Relations Intern Goal (LTG) Pt will be able to run 20 min without inc knee pain. 05/11-Pt reports no R knee was catching a lot. 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 05/11improving LTG Duration achieved LEFS Impairment 54/80 Short Term Goal (STG) Pt will improve score to at least 65/80 to show improved functional ability. 05/11-n/t 07/09-64/80 STG Duration 08/08/21 Public Relations Intern Goal (LTG) Pt will improve score to at least 75/80 to show improved functional ability. LTG Duration 09/08/21 Assessment Summary Assessment Pt has progressed signficiantly with strength and mobility and is back to being able to work out 20 min on elliptical but has not run yet. Worked on running form today w/significant cueing needed. She has tight ITB and is encouraged to roll out. Edu not to start running for long periods but jog walk. She did well with sidesteps w/min cues. Physical Therapy Plan Frequency and Duration Frequency of Treatment as needed Duration of Treatment 2 months Plan of Care Start Date 07/09/21 Plan of Care End Date 09/08/21 Therapeutic Interventions Therapeutic Interventions Aquatic Therapy,Balance Training,Gait Training,Home Exercise Program,Joint Mobilizations,Manual Therapy, Neuromuscular Re-education, Patient/Caregiver Education, Self-Care/Home Management,Soft Tissue Mobilization,Taping, Therapeutic Activities, Therapeutic Exercises Modalities Cold Pack/Ice Massage,Electric Stimulation,Hot Packs, Infrared Therapy,Iontophoresis ,Ultrasound Next Visit Focus/Plan Next Note Type Treatment Note Next Visit Plan review HEP as needed and DC if pt ready Plan of Care Dates Plan of Care Start Date 07/09/21 Plan of Care End Date 09/08/21 Electronically Signed by: Michell Nesbitt, PT 07/09/21 [id number] Please Sign and Return: I have reviewed this Plan of Care and certify that the skilled therapy services above are required to meet the patient?s needs. Physician Signature Date Printed Name and Credentials Clinical Instructor Signature Printed Name and Credentials
--- NOTE | 2021-09-14 14:57 | PT.OPDS ---
Current Diagnoses Pain in left knee (07/09/21) Unspecified abnormalities of gait and mobility (07/09/21) Abnormal posture (07/09/21) Weakness (07/09/21) Visit Care Team Role Provider Type Michell Snow MD Attending Provider Physician Primary Care Provider Referring Provider Specialty: Family [facility] Address: [address] [place] [address], [id number] Email: [email or web address] Visit Number Visit Number 15 Discharge Summary PT-OP-B Current Condition Start: 03/09/21 17:45 Freq: Status: Active Protocol: Document 05/20/21 08:23 [facility] (Rec: 05/20/21 09:03 [facility] [id number]) Current Condition History of Current Condition Onset Date this winter Current Complaints L knee pain History of Current Condition 05/20-Pt reprots R knee had been hurting for a while too but no known injury IE:Pt reports remembering climbing out the back of car and slammed knee into car this winter. 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 She improved form then that helped but then stopped and pain was worse and didn't resume. pt resumed going to the gym and it has been killing me. Tried to start light (did treadmill ( fast pace walking and working up running-has built up to 13 min) or elliptical (in the full range setting). It felt good when she was running but not after. Has not been to gym since xray 1.5 weeks ago. Does do stretching and arms also at gym typcially. Works remotely for a [employer] and sits w/1 knee bent and other leg over it and thinks that may be the main cause but pain does inc. She started new role w/[employer] in Oct where [facility] has to be in office d/t back to back calls. Pt cannot sleep on her side d/t pain. Has been sleeping supine /prone. Prior Treatments and Tests Xray-IMPRESSION: Mild lateral subluxation of the patella, which may indicate medial ligamentous laxity but there also is note made of a relatively shallow trochlear groove which does predispose to lateral subluxation. PT-OP-C Subjective Start: 03/09/21 17:45 Freq: Status: Active Protocol: Document 07/09/21 10:51 [facility] (Rec: 07/09/21 11:51 [facility] [id number]) OP-PT Subjective Patient Comments Patient Comments Pt reports some lat knee pain today PT-OP-D Balance Start: 03/09/21 17:45 Freq: Status: Active Protocol: Document 05/20/21 08:23 [facility] (Rec: 05/20/21 09:03 [facility] [id number]) Balance Tests Single Limb Standing Single Limb- Right 21 w/occ UE use and lat shear of hip Single Limb- Left >30 sec w/occ UE use and lat shear of hip PT-OP-F Manual Assessment Start: 03/09/21 17:45 Freq: Status: Active Protocol: Document 03/10/21 14:26 [facility] (Rec: 03/10/21 15:18 [facility] [id number]) Manual Assessments Soft Tissue Assessment Soft Tissue Mobility Assessment tightness HS, ITB, adductors, calf Joint Mobility Assessment Joint Mobility Assessment rearfoot valgus B, IR femurs & tibias B PT-OP-G Mobility & Gait Start: 03/09/21 17:45 Freq: Status: Active Protocol: Document 03/10/21 14:26 [facility] (Rec: 03/10/21 15:18 [facility] [id number]) OP Gait Assessment Comments Gait Comments Toes turned in, lat shear of hips w/WB, dec push off, inc LUE arm swing PT-OP-J Posture/Palpation/Skin Start: 03/09/21 17:45 Freq: Status: Active Protocol: Document 07/09/21 10:51 [facility] (Rec: 07/09/21 11:51 [facility] [id number]) Posture Evaluation Yris Postural Classification System Lumbar Protective Mechanism Left AP 3 Lumbar Protective Mechanism Right AP 3 Lumbar Protective Mechanism Left PA 3 Lumbar Protective Mechanism Right PA 3 PT-OP-K Range of Motion Start: 03/09/21 17:45 Freq: Status: Active Protocol: Document 05/20/21 08:23 [facility] (Rec: 05/20/21 09:03 [facility] [id number]) Knee Goniometric Range of Motion Knee Right Flexion Active (degrees) 133 Extension Active (degrees) 2 Comments pain w/ext Left Flexion Active (degrees) 130 Extension Active (degrees) 0 PT-OP-L Special Tests Start: 03/09/21 17:45 Freq: Status: Active Protocol: Document 05/20/21 08:23 [facility] (Rec: 05/20/21 09:03 [facility] [id number]) Special Tests Knee Special Tests Straight Leg Raise Test Results 79 deg B Steve's Test Test Results positve B Abbe Test Results mild tightness in quads R>L Varus- 25 Degrees Test Results neg B Vaughan's Compression Test Results positve B Thessaly Test 5 Degrees Test Results neg B Valgus- 25 Degrees Test Results neg Posterior Draw Test Results neg Cochran Chondromalacia Test Results does not change pain w/med glide R Corrie Test Test Results neg B Jie's Test Results neg B PT-OP-M Strength Start: 03/09/21 17:45 Freq: Status: Active Protocol: Document 07/09/21 10:51 [facility] (Rec: 07/09/21 11:51 [facility] [id number]) Hip Strength Hip Manual Muscle Testing Right Flexion (L2) 5 Normal Extension (S1) 5 Normal Abduction 5 Normal Adduction 5 Normal External Rotation 5 Normal Internal Rotation 5 Normal Left Flexion (L2) 5 Normal Extension (S1) 5 Normal Abduction 5 Normal Adduction 5 Normal External Rotation 5 Normal Internal Rotation 5 Normal Knee Strength Knee Manual Muscle Testing Right Flexion (S2) 5 Normal Extension (L3) 5 Normal Left Flexion (S2) 5 Normal Extension (L3) 5 Normal Ankle/Foot Strength Ankle and Foot Manual Muscle Testing Right Dorsiflexion (L4) 5 Normal Plantarflexion (S1) 5 Normal Inversion 5 Normal Eversion (S1) 5 Normal Comments 20 heel raises Left Dorsiflexion (L4) 5 Normal Plantarflexion (S1) 5 Normal Inversion 5 Normal Eversion (S1) 5 Normal PT-OP-T Assessment and Plan Start: 03/09/21 17:45 Freq: Status: Active Protocol: Document 09/14/21 14:56 [facility] (Rec: 09/14/21 14:57 [facility] [id number]) Physical Therapy Assessment Assessment Summary Assessment Pt made good progress w/PT but was still having intermittent pain. She cancelled her last scheduled appt and did not schedule further. DC at this time d/t has not been to PT for 2 months. Physical Therapy Plan Discharge Physical Therapy Discharge Reasons No Longer Attending PT
== END 2021-12-01 09:47 ==
LOC: PHYS 10:30
PROVIDERS: PCP Family Medicine; Referring Provider Family Medicine; Visit Provider Family Medicine
DX: M25.562 Pain in left knee (principal); R53.1 Weakness; R26.9 Unspecified abnormalities of gait and mobility; R29.3 Abnormal posture
CPT/HCPCS: 97110; 97112; 97140; 97162; 97164; 97535

== ENCOUNTER → 2023-11-11 11:43 | Outpatient (CLI) | payer OTHER, SELFPAY ==
--- NOTE | 2023-11-11 11:46 | DI.RAD.S_ITS ---
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 COMPARISON: [facility], CARMELINA, XR KNEE LT 3V, 02/27/2021, 13:23. FINDINGS: Bones: No fractures or dislocations. No suspicious bony lesions. Soft tissues: No joint effusion. No suspicious soft tissue calcifications. IMPRESSION: No acute bony abnormality or significant effusion. Dictated by: Hilary Ji M.D. on 11/11/2023 at 12:27 Approved by: Hilary Ji M.D. on 11/11/2023 at 12:28
== END ==
LOC: RAD 11:45
PROVIDERS: PCP Family Medicine; Referring Provider Student in an Organized Health Care Education/Training Program; Visit Provider Student in an Organized Health Care Education/Training Program
DX: M25.562 Pain in left knee (principal)
CPT/HCPCS: 73562

== ENCOUNTER → 2025-07-12 10:02 | Outpatient (CLI) | payer OTHER, SELFPAY ==
--- NOTE | 2025-07-12 10:03 | DI.RAD.S_ITS ---
PROCEDURE: XR KNEE LT 3V INDICATIONS: Left knee pain after playing soccer TECHNIQUE: 3 views of the knee were acquired. COMPARISON: [facility], CR, XR KNEE LT 3V, 11/11/2023, 11:59. FINDINGS: Bones: No fractures or dislocations. No suspicious bony lesions. Soft tissues: No joint effusion. No suspicious soft tissue calcifications. IMPRESSION: No acute bony abnormality or significant effusion. Dictated by: Zoltan Caballero M.D. on 07/15/2025 at 6:05 Approved by: Zoltan Caballero M.D. on 07/15/2025 at 6:06
== END ==
PROVIDERS: PCP Family Medicine; Referring Provider Nurse Practitioner Family; Visit Provider Nurse Practitioner Family
DX: M25.562 Pain in left knee (principal)
CPT/HCPCS: 73562